=== PATIENT | female | born 1940 | race Caucasian/White ===

== ENCOUNTER 2017-06-25 13:15 | Emergency (ER) | payer OTHER ==
[~2017-06-25] VITALS: Ht 165.1 cm; Wt 84.1 kg
[2017-06-25] MEDS ORDERED: LATA5OPD (13:32)
[2017-06-25] MEDS ORDERED: POTA10TA17 PO (13:32)
[2017-06-25] MEDS ORDERED: LEVO50TA5 PO (13:32)
[2017-06-25] MEDS ORDERED: FAMO1TAB11 PO (13:32)
[2017-06-25] MEDS ORDERED: VITA1CAP40 PO (13:32)
[2017-06-25] MEDS ORDERED: TIMO0.5S29 (13:32)
[2017-06-25] MEDS ORDERED: DICL75TA PO (13:32)
[2017-06-25] MEDS ORDERED: HYDR25TAB PO (13:32)
--- NOTE | 2017-06-25 16:32 | REP ---
Clinical: Pain. Technique: AP view of the pelvis with neutral and frog lateral views of the bilateral hips. Comparison: 07/03/2013. Findings: No acute fracture dislocation. Age-related degenerative changes include increased sclerosis to the acetabular roof with my mild joint space narrowing. Surrounding soft tissues are unremarkable. Pessary noted. Impression: Mild symmetric bilateral age-related degenerative changes. Signed by Asa Hurley MD 06/25/2017 04:23 P
[2017-06-25 16:56] VITALS: BP 170/89
[2017-06-25] MEDS ORDERED: KEFL500C17 PO (17:11)
[2017-06-25] MEDS ORDERED: IBUPROFEN 400 MG TAB PO ONE (17:15)
== END 2017-06-25 17:20 | disposition home or self-care (01) ==
LOC: M ED 13:15
DX: M16.0 Bilateral primary osteoarthritis of hip (principal); N39.0 Urinary tract infection, site not specified; G51.0 Bell's palsy; H35.30 Unspecified macular degeneration; E03.9 Hypothyroidism, unspecified; Z79.899 Other long term (current) drug therapy

== ENCOUNTER 2017-06-28 04:37 | Inpatient (IN) | payer OTHER ==
[~2017-06-28] VITALS: Ht 165.1 cm; Wt 93.5 kg
[~2017-06-28 04:37] MED LIST: DICL75TA PO; FAMO1TAB11 PO; HYDR25TAB PO; KEFL500C17 PO; LATA5OPD; LEVO50TA5 PO; POTA10TA17 PO; TIMO0.5S29; VITA1CAP40 PO
[2017-06-28] MEDS ORDERED: IBUP200T45 PO (04:58)
[2017-06-28] MEDS ORDERED: ASPI1TAB PO (04:58)
[2017-06-28] MEDS ORDERED: TYLE500T78 PO (04:58)
[2017-06-28 06:12] LABS: BASO % 0.2 % (0.0-1.0); EOS # 0.1 10^3/uL (0.0-0.50); EOS % 0.5 % (0.0-3.0); IMMATURE GRANULOCYTE % 0.7 % (0-0); LYMPH # 1.5 10^3/uL (1.5-4.5); LYMPH % 11.6 % (24.0-44.0); MEAN CORPUSCULAR HEMOGLOBIN 32.1 pg (27.0-33.0); MONO # 1.3 10^3/uL (0.0-0.8); MONO % 10.2 % (0.0-5.0); NEUTROPHILS # 10.1 10^3/uL (1.8-7.7); NEUTROPHILS % 76.8 % (36.0-66.0); PLATELET COUNT, AUTOMATED 339 10^3/uL (150-450); RED CELL DISTRIBUTION WIDTH 11.9 % (11.5-14.5); WHITE BLOOD COUNT 13.1 10^3/uL (4.0-10.0)
[2017-06-28 06:14] LABS: INR 0.94
[2017-06-28] MEDS ORDERED: MORPHINE 4 MG/ML 1ML SYRINGE IV PRN (06:15)
[2017-06-28] MEDS ORDERED: ONDANSETRON 4MG/2ML VIAL (J2405) IV ONE (06:15)
[2017-06-28 06:22] LABS: ALBUMIN 3.2 GM/DL (3.2-5.2); ALBUMIN/GLOBULIN RATIO 0.82 (1.00-1.93); ALKALINE PHOSPHATASE 91 U/L (45-117); ALT/SGPT 19 U/L (12-78); ANION GAP 11 MEQ/L (8-16); AST/SGOT 18 U/L (7-37); BILIRUBIN,DIRECT 0.2 MG/DL (0.0-0.2); BILIRUBIN,TOTAL 0.4 MG/DL (0.2-1.0); BLOOD UREA NITROGEN 8 MG/DL (7-18); CARBON DIOXIDE LEVEL 24 MEQ/L (21-32); CHLORIDE LEVEL 88 MEQ/L (98-107); CREATININE FOR GFR 0.63 MG/DL (0.55-1.02); GLOMERULAR FILTRATION RATE > 60.0 (>39); GLUCOSE, FASTING 128 MG/DL (83-110); POTASSIUM SERUM 3.7 MEQ/L (3.5-5.1); SODIUM LEVEL 123 MEQ/L (136-145); TOTAL PROTEIN 7.1 GM/DL (6.4-8.2)
[2017-06-28] MEDS ORDERED: ISOVUE-370 76% 100ML VIAL (Q9967) As Ordered ONE (07:02)
[2017-06-28 07:50] LABS: FREE T4 2.16 NG/DL (0.76-1.46)
--- NOTE | 2017-06-28 08:10 | REPUSA ---
CLINICAL HISTORY: Abdominal pain. TECHNIQUE: Multiple axial, sagittal and coronal CT images were obtained through the abdomen and pelvi s after administration of oral and intravenous contrast material. COMMENTS: Acute/subacute compression fracture of L2 vertebral body. The maximum loss of height is estimated at 86%. Associated moderate retropulsion with impingement on the corresponding aspect of the thecal sac. Secondary moderate narrowing of the corresponding aspect of the spinal canal increased kyphosis at t he level of the thoracolumbar junction. Acute/subacute compression fracture of L1 vertebral body. The maximum loss of height is estimated at 15%. No associated retropulsion or secondary canal stenosis. Mild osteopenia of the visualized bones. Moderate diffuse spondylotic changes. Uncomplicated chronic diverticulosis. Thickening of the gastric body and antrum suggestive of gastritis. No associated perforation or fluid collection. The liver is of uniform attenuation without mass or defect. There is no intra or extrahepatic biliary ductal dilatation. The spleen is normal. The gallbladder is surgically absent. The pancreas is of no rmal contour and attenuation characteristics. There is no evidence of adrenal mass. Both kidneys demonstrate prompt and equal nephrograms. The kidneys are normal in size, shape and conf iguration. There is no evidence of renal or ureteral mass. No renal or ureteral calculi are identifie d. There is no hydroureter or hydronephrosis. No evidence for appendicitis. There is no bowel wall thickening. No evidence for small or large katherin l obstruction. There is no evidence of abdominal ascites or lymphadenopathy. There is no evidence of intrinsic or extrinsic bladder mass. There is no pelvic ascites or lymphadeno noe. Images of the lung bases show no evidence of pleural or parenchymal mass. There are no pleural effusi ons. The bony structures are free of lytic or blastic lesions. Multilevel degenerative changes are seen in volving the thoracolumbar spine. Scattered calcifications are seen involving the aorta and major bran ches compatible with atherosclerosis. Pessary is noted in place. IMPRESSION: Acute/subacute compression fractures of L1 and L2 vertebral bodies as detailed above. Gastritis. Prior cholecystectomy. Uncomplicated diverticulosis. Mild cystitis. Thank you for your kind referral of this patient.
--- NOTE | 2017-06-28 08:10 | REPUSA ---
CLINICAL HISTORY: Back pain. TECHNIQUE: Multiple axial images were obtained through the L1-L2, L2-L3, L3-L4, L4-L5 and L5-S1 inter spaces. Images were also reconstructed in coronal and sagittal planes. COMMENTS: Acute/subacute compression fracture of L2 vertebral body. The maximum loss of height is estimated at 86%. Associated moderate retropulsion with impingement on the corresponding aspect of the thecal sac. Secondary moderate narrowing of the corresponding aspect of the spinal canal increased kyphosis at t he level of the thoracolumbar junction. Acute/subacute compression fracture of L1 vertebral body. The maximum loss of height is estimated at 15%. No associated retropulsion or secondary canal stenosis. Mild osteopenia of the visualized bones. Moderate diffuse spondylotic changes. There are diffuse spondylotic changes. Findings are demonstrated by disc space narrowing, osteophyte formation and degenerative endplate changes. Facet joint arthropathy and degenerative uncovertebral j oint disease. No dislocation is seen. No aggressive bone lesion is noted. IMPRESSION: Acute/subacute compression fracture of L2 vertebral body. The maximum loss of height is estimated at 86%. Associated moderate retropulsion with impingement on the corresponding aspect of the thecal sac. Secondary moderate narrowing of the corresponding aspect of the spinal canal increased kyphosis at t he level of the thoracolumbar junction. Acute/subacute compression fracture of L1 vertebral body. The maximum loss of height is estimated at 15%. No associated retropulsion or secondary canal stenosis. Thank you for your kind referral of this patient.
--- NOTE | 2017-06-28 08:59 | REP ---
Clinical: Shortness of breath . Comparison: None . Findings: The mediastinum and cardiac silhouette are stable and within normal limits for portable technique. The lung bonds are clear without acute consolidation, effusion, or pneumothorax. Skeletal structures are intact. Impression: No acute cardiopulmonary process appreciated. Signed by Asa Hurley MD 06/28/2017 08:50 A
[2017-06-28] MEDS ORDERED: hydroCHLOROthiazide 25 MG TAB PO SCH (09:00)
--- NOTE | 2017-06-28 09:27 | ECGEPIP ---
Stationary ECG Study [facility] - ED Test Date: 2017-06-28 Pat Name: ANABELLE SWAIN Department: Room: - Gender: F Associate Spa Director: MARY : 1940 Requested By: Kayley Hdz Order Number: [id number] Reading MD: Paul Willis Measurements Intervals [place] Rate: 65 P: 23 OK: 149 QRS: -15 QRSD: 90 T: 30 QT: 413 QTc: 430 Interpretive Statements SINUS RHYTHM NO PRIORS FOR COMPARISON Electronically Signed On 06-28-2017 9:26:44 EST by Paul Willis
[2017-06-28] MEDS ORDERED: MAGN64TASA PO (09:30)
[2017-06-28] MEDS ORDERED: PRESCAP6 PO (09:30)
[2017-06-28] MEDS ORDERED: DICL75TA PO (09:30)
[2017-06-28] MEDS ORDERED: MIRA33504 PO (09:30)
[2017-06-28] MEDS ORDERED: HYDR25TAB PO (09:30)
[2017-06-28] MEDS ORDERED: FLUTISP (09:31)
[2017-06-28] MEDS ORDERED: DRIS50002 PO (09:32)
[2017-06-28] MEDS ORDERED: LATA5OPD OU (09:34)
[2017-06-28] MEDS ORDERED: TIMO0.5S29 OU (09:34)
[2017-06-28] MEDS ORDERED: ESTR62CR PV (09:36)
--- NOTE | 2017-06-28 11:24 | REP ---
MR LUMBAR SPINE WITHOUT CONTRAST: HISTORY: Back pain. COMPARISON: CT 06/28/2017. Decreased signal intensity on T2-weighted images is present in the lumbar intervertebral discs. The L1-2 through L3-4 and L5-S1 intervertebral discs are decreased in height. These findings are consistent with disc degeneration. A diffuse disc bulge is present at the L1-2 level. There is minimal compression of the thecal sac. There is hypertrophy of the ligamenta flava and posterior articulating facets. The L1 nerves exit the neural foramina without compression. A diffuse disc bulge is present at the L2-3 level. There is hypertrophy of the ligamenta flava and posterior articulating facets. These findings produce mild central canal stenosis. The L2 nerves exit the neural foramina without compression. A diffuse disc bulge is present at the L3-4 level. There is hypertrophy of the ligamenta flava and posterior articulating facets. These findings produce minimal central canal stenosis. The L3 nerves exit the neural foramina without compression. A diffuse disc bulge is present at the L4-5 level. There is minimal compression of the thecal sac. There is hypertrophy of the ligamenta flava and posterior articulating facets. The L4 nerves exit the neural foramina without compression. A diffuse disc bulge with associated osteophyte formation is present at the L5-S1 level. There is hypertrophy of ligamenta flava and posterior articulating facets. These findings produce minimal central canal stenosis. There is compression of the right L5 nerve in the neural foramen. The L5 nerve exits the neural foramen without compression. The conus medullaris is normal in appearance terminating at the level of the T12-L1 intervertebral disc. Slight increased signal intensity on T2-weighted images is present in the superior endplate region of the L2 vertebral body. There is moderate loss of vertebral body height. This is consistent with a late subacute chronic fracture. There is minimal retropulsion with minimal spinal canal compromise. Mild heterogeneous increased signal intensity on T2-weighted images is present in the L1 vertebral body. There is minimal height loss. This is consistent with a subacute acute fracture. Normal signal intensity is present in the remaining lumbar vertebral bodies. IMPRESSION: 1. Diffuse disc bulges at the L1-2 and L4-5 levels with minimal thecal sac compression. 2. Mild central canal stenosis at the L2-3 level secondary to disc bulge, ligamentous, and facet hypertrophy. 3. Minimal central canal stenosis at the L3-4 level secondary to disc bulge, ligamentous and facet hypertrophy. 4. Minimal central canal stenosis at the L5-S1 level secondary to disc bulge, ligamentous, and facet hypertrophy and osteophyte formation. There is compression of the right L5 nerve in the neural foramen. 5. Subacute chronic L2 vertebral body fracture with moderate height loss. 6. Subacute L1 vertebral body fracture with minimal height loss. Signed by Willian Ruiz MD 06/28/2017 12:01 P
[2017-06-28] MEDS: NS 1,000 ML IV SCH (11:30)
[2017-06-28] MEDS ORDERED: ACETAMINOPHEN 500 MG TAB PO SCH (12:00)
[2017-06-28 12:12] LABS: THYROXINE (T4) 13.5 UG/DL (4.5-12.0)
[2017-06-28 12:59] VITALS: BP 120/63
[2017-06-28] MEDS: TIMOLOL MALEATE 0.5% OPHTH SOLN 5 ML OU SCH ×2 (13:04→21:08)
[2017-06-28] MEDS: MAGNESIUM CHLORIDE 64 MG TABCR (SLO MAG) PO SCH ×2 (13:04→21:07)
[2017-06-28] MEDS: MORPHINE 2 MG/ML 1ML SYRINGE IV PRN ×2 (13:05→22:08)
[2017-06-28] MEDS: HEPARIN SOD (PORCINE) 5000 UNITS/ML VIAL SC SCH ×2 (13:05→22:13)
[2017-06-28] MEDS: CEFTRIAXONE SOD 1 GM in APPROPRIATE DILUENT 1 EA IV SCH (14:09)
[2017-06-28] MEDS: ACETAMINOPHEN 500 MG TAB PO SCH ×2 (15:35→21:08)
[2017-06-28 16:00] VITALS: BP 149/75
--- NOTE | 2017-06-28 16:19 | HPEPDOC ---
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 Yan Chiropractor: Dr. Russell Attending Physician: GINA GALLARDO MD Chief Complaint 76-year-old female presents to ED for chronic low back pain that has worsened in the past few days. Described as sharp, located in low back, intermittent, radiating to bilateral hips. 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 Back pain is worse with movement and at night, and alleviated by heat. Associated with nausea, left lower belly pain, and decreased appetite. Patient denies recent falls or injuries. Per patient, most recent bone density scan done in was normal. Patient was recently seen in ED on Wednesday and sent home with diagnoses of UTI on cephalexin and arthritis of bilateral hips. Patient still complains of incontinence and urgency and frequency. Denies other ROS, including loss of bowel bladder function, saddle anesthesia, motor or sensory weakness, chest pain, shortness of breath. In the ED, WBC was elevated at 13.1, patient hyponatremic at 123, in BP elevated at 209/96 that improved with Iopamidol and Morphine. Other vitals WNL. Imaging revealed compression fractures of L1 and L2, gastritis, cystitis. Home Medications Scheduled (Preservision Areds 2) 1 Cap Cap, 1 CAP PO BID, (Reported) Acetaminophen (Tylenol Extra Strength) 500 Mg Tab, 500 MG PO Q4H, (Reported) Aspirin (Aspirin 81) 81 Mg Tab, 81 MG PO QPM, (Reported) Cephalexin Monohydrate (Keflex) 500 Mg Cap, 500 MG PO Q12H Conjugated Estrogens (Premarin) 1 Dose/30 Gm Cr, 1 DOSE PV QWEEK, (Reported) TUESDAYS Diclofenac Sodium (Diclofenac Sodium Dr) 75 Mg Tab, 75 MG PO DAILY, (Reported) PT STATES SHE IS NOT TAKING WHILE TAKING HER ANTIBIOTIC Famotidine (Famotidine) 20 Mg Tab, 20 MG PO QPM, (Reported) Hydrochlorothiazide (Hydrochlorothiazide) 25 Mg Tab, 25 MG PO DAILY, (Reported) Ibuprofen (Ibu-200) 200 Mg Tab, 200 MG PO Q4H, (Reported) Latanoprost (Latanoprost) 50 Drop/2.5 Ml Soln, 1 DROP OU QHS, (Reported) Levothyroxine Sodium (Synthroid) 50 Mcg Tab, 50 MCG PO DAILY, (Reported) Magnesium Chloride (Mag64) 64 Mg Tabcr, 64 MG PO BID, (Reported) PT STATES SHE IS NOT TAKING WHILE TAKING HER ANTIBIOTIC Polyethylene Glycol (Miralax) 1 Pow Pow, 17 GM PO DAILY, (Reported) Potassium Chloride (Potassium Chloride Sr) 10 Meq Tab, 10 MEQ PO QPM, (Reported) Timolol Maleate (Timolol Maleate) 0.5 % Nora, 1 DROP OU BID, (Reported) AM AND NOON Vitamin D (Drisdol) 50,000 Unit Cap, 50,000 UNIT PO QMONTH, (Reported) Scheduled PRN Fluticasone Propionate (Fluticasone Propionate) 50 Mcg/Act Spr, 1 SPRAY NA BID PRN for CONGESTION, (Reported) Allergies Coded Allergies: No Known Allergies (Unverified , 06/25/17) Past Medical History Medical History Hypothyroidism Hypertension Macular degeneration-wet GERD Glaucoma Squamous Cell Carcinoma on right hand, dorsal Surgical History Tonsillectomy Cholecystectomy Tubal ligation Hysterectomy Bilateral cataract surgery Family History Father: Passed of stroke Mother: Passed of colon cancer Sister: Breast cancer Social History Denies smoking, alcohol, illicit substances. Lives at home with . Ambulates by self. Review of Symptoms Constitutional: Denies: Chills, Fever, Night Sweats, Weight Loss Eyes: Denies: Pain, Vision change ENT: Denies: Head Aches, Ear Pain, Dysphagia Pulmonary: Denies: Dyspnea, Cough Cardiovascular: Denies: Chest Pain, Palpitations, Edema, Lt Headedness Gastrointestinal: Reports: Abdominal Pain (intermittent, LLQ), Constipation ( chronic), Denies: Nausea, Vomiting, Melena Endocrine: Denies: Heat Intolerance, Cold Intolerance Musculoskeletal: Reports: Back Pain (low back, radiating to bilater hips), Denies: Muscle Pain, Spasms Neurological: Denies: Weakness, Numbness Physical Examination General Exam: Positive: Alert, Cooperative, Mild Distress (due to back pain) Eye Exam: Positive: Conjunctiva & lids normal, EOMI, Negative: Sclera icteric, Ptosis ENT Exam: Positive: Atraumatic, Mucous membr. moist/pink, Nares Patent, Pinna Normal, Other ENT (poor dentition) Neck Exam: Positive: Supple, +2 carotid pulse wo bruit, Negative: JVD, Lymphadenopathy Chest Exam: Positive: Clear to auscultation, Normal air movement, Negative: Wheezing Heart Exam: Positive: Rate Normal, Regular Rhythm, Normal S1, Normal S2 Abdomen Exam: Positive: Normal bowel sounds, Soft, Negative: Tenderness Extremity Exam: Positive: Normal pulses, Negative: Clubbing, Cyanosis, Edema, Tenderness Skin Exam: Positive: Nl turgor and temperature, Negative: Rash Neuro Exam: Positive: Normal Speech, Strength at 5/5 X4 ext, Normal Tone, Sensation Intact Psych Exam: Positive: Mental status NL, Mood NL Vital Signs Vital Signs Date Time Temp Pulse Resp B/P (MAP) Pulse Ox O2 Delivery O2 Flow Rate FiO2 06/28/17 09:37 80 06/28/17 09:26 172/87 (115) 06/28/17 09:22 97 06/28/17 09:00 20 06/28/17 04:38 97.8 Room Air Laboratory Data Labs 24H Laboratory Tests 2 06/28/17 05:26: Immature Granulocyte % (Auto) 0.7H, White Blood Count 13.1H, Red Blood Count 3.74L, Hemoglobin 12.0, Hematocrit 33.3L, Mean Corpuscular Volume 89.0, Mean Corpuscular Hemoglobin 32.1, Mean Corpuscular Hemoglobin Concent 36.0, Red Cell Distribution Width 11.9, Platelet Count 339, Neutrophils (%) (Auto) 76.8H, Lymphocytes (%) (Auto) 11.6L, Monocytes (%) (Auto) 10.2H, Eosinophils (%) (Auto ) 0.5, Basophils (%) (Auto) 0.2, Neutrophils # (Auto) 10.1H, Lymphocytes # (Auto ) 1.5, Monocytes # (Auto) 1.3H, Eosinophils # (Auto) 0.1, Basophils # (Auto) 0.0 , Immature Granulocyte # (Auto) 0.1H, Nucleated Red Blood Cells % (auto) 0.0, Prothrombin Time 12.7, Prothromb Time International Ratio 0.94, Activated Partial Thromboplast Time 35.2, Anion Gap 11, Glomerular Filtration Rate > 60.0 , Osmolality 288, Calcium Level 9.0, Aspartate Amino Transf (AST/SGOT) 18, Alanine Aminotransferase (ALT/SGPT) 19, Alkaline Phosphatase 91, Total Bilirubin 0.4, Direct Bilirubin 0.2, Total Creatine Kinase 59, Creatine Kinase MB 2.4, Creatine Kinase MB Relative Index 4.06H, Troponin I < 0.02, Total Protein 7.1, Albumin 3.2, Albumin/Globulin Ratio 0.82L, Lipase 321, Thyroid Stimulating Hormone (TSH) 2.730, Free Thyroxine 2.16H 06/28/17 07:33: Urine Random Osmolality 252L, Urine Random Creatinine 40.4, Urine Random Sodium 50 CBC/BMP Laboratory Tests 06/28/17 05:26 Red Blood Count 3.74 L, Mean Corpuscular Volume 89.0, Mean Corpuscular Hemoglobin 32.1, Mean Corpuscular Hemoglobin Concent 36.0, Red Cell Distribution Width 11.9, Neutrophils (%) (Auto) 76.8 H, Lymphocytes (%) (Auto) 11.6 L, Monocytes (%) (Auto) 10.2 H, Eosinophils (%) (Auto) 0.5, Basophils (%) ( Auto) 0.2, Neutrophils # (Auto) 10.1 H, Lymphocytes # (Auto) 1.5, Monocytes # ( Auto) 1.3 H, Eosinophils # (Auto) 0.1, Basophils # (Auto) 0.0 Microbiology Microbiology 06/28/17 Blood Culture, Received Pending 06/28/17 Blood Culture, Received Pending Assessment/Plan Compression fracture L1/L2 & L5 Chronic low back pain that recently worsened the past few days. Sharp, intermittent, radiating to bilateral hips, worse with mvmt. Denies paresthesia/ weakness. Compression fractures and spinal stenosis noted on imaging. Neurosurgery consulted. Appreciate Dr. Moeller's input Pain control with Tylenol & Morphine PT eval pending, on bedrest Hypertensive urgency SBP > 200 on admission, improved with Iopamidol partially due to back pain. Morphine for back pain will improve bp low sodium diet hold home HCTZ 2/2 hyponatremia Leukocytosis, 2/2 UTI WBC 13. Recently seen in ED on Wednesday and sent home on Cephalexin Hold cephalexin, start Ceftriaxone inpatient previous urine cultures were negative. Redo urine culture, with straight cath now Hyponatremia Na 123 on admission. Will check urine & serum osmolality, SIADH vs volume depletion possibly 2/2 dehydration. On NS IV hydration Hold home HCTZ Squamous cell cancer on right hand Cancer was excised by [facility] Nurse Practitioners. Stitches still in place on dorsal surface of right hand, was scheduled to be taken out early this week. Will assess and possibly remove tomorrow. GERD continue home Famotidine Glaucoma continue home Timolol may use own home Areds drops Hypothyroidism continue home Synthroid DVT prophylaxis TEDS/SCDs, Heparin sc DISPOSITION: We'll admit to hospital under Dr. Gallardo's service. Plan / VTE VTE Prophylaxis Ordered?: Yes (KAYDEN/SCD) GME ATTESTATION GME ATTESTATION My faculty preceptor for this patient encounter was physically present during the encounter and was fully available. All aspects of the patient interview, examination, medical decision making process, and medical care plan development were reviewed and approved by the faculty preceptor. The faculty preceptor is aware and concurs with the plan as stated in the body of this note and will attest to such by his/her cosignature. OWEN OSMAN DO Jun 28, 2017 10:05
[2017-06-28 20:00] VITALS: BP 159/70
[2017-06-28] MEDS: ASPIRIN 81 MG ENTERIC TAB PO SCH (21:08)
[2017-06-28] MEDS: FAMOTIDINE 20 MG TAB PO SCH (21:08)
[2017-06-28] MEDS: POTASSIUM CHLORIDE 10 MEQ SR TABLET PO SCH (21:09)
[2017-06-28] MEDS: LATANOPROST 0.005% OPHTH SOLN 2.5 ML OU SCH (21:38)
[2017-06-28 23:59] VITALS: BP 112/57
[2017-06-29] MEDS: ACETAMINOPHEN 500 MG TAB PO SCH ×6 (00:16→20:57)
[2017-06-29] MEDS: NS 1,000 ML IV SCH ×2 (02:21→15:32)
[2017-06-29 04:00] VITALS: BP 162/83
[2017-06-29] MEDS: HEPARIN SOD (PORCINE) 5000 UNITS/ML VIAL SC SCH ×3 (05:56→21:41)
[2017-06-29 06:10] LABS: MEAN CORPUSCULAR HEMOGLOBIN 31.1 pg (27.0-33.0); MEAN CORPUSCULAR HGB CONC 35.3 g/dl (32.0-36.5); MEAN CORPUSCULAR VOLUME 88.2 fl (80.0-96.0); PLATELET COUNT, AUTOMATED 327 10^3/uL (150-450); RED CELL DISTRIBUTION WIDTH 11.9 % (11.5-14.5); WHITE BLOOD COUNT 7.6 10^3/uL (4.0-10.0)
[2017-06-29 06:26] LABS: ANION GAP 8 MEQ/L (8-16); BLOOD UREA NITROGEN 6 MG/DL (7-18); CALCIUM LEVEL 8.7 MG/DL (8.8-10.2); CARBON DIOXIDE LEVEL 26 MEQ/L (21-32); CHLORIDE LEVEL 92 MEQ/L (98-107); CREATININE FOR GFR 0.58 MG/DL (0.55-1.02); GLOMERULAR FILTRATION RATE > 60.0 (>39); GLUCOSE, FASTING 100 MG/DL (83-110); POTASSIUM SERUM 3.4 MEQ/L (3.5-5.1); SODIUM LEVEL 126 MEQ/L (136-145)
[2017-06-29 07:44] VITALS: BP 137/63
[2017-06-29] MEDS ORDERED: POTASSIUM CHLORIDE 10 MEQ SR TABLET PO ONE (08:15)
[2017-06-29] MEDS: TIMOLOL MALEATE 0.5% OPHTH SOLN 5 ML OU SCH ×2 (08:26→20:57)
[2017-06-29] MEDS: MAGNESIUM CHLORIDE 64 MG TABCR (SLO MAG) PO SCH ×2 (08:26→20:57)
[2017-06-29] MEDS: FLUTICASONE PROP 0.05% NASAL SPRAY 16 GM (FLONASE) PRN (08:27)
[2017-06-29] MEDS ORDERED: LEVOTHYROXINE 50MCG TABLET (0.05MG) PO SCH (09:00)
[2017-06-29] MEDS: MORPHINE 2 MG/ML 1ML SYRINGE IV PRN (10:29)
[2017-06-29] MEDS: MIRALAX *UNIT DOSE* 17GM PACKET PO SCH (11:01)
[2017-06-29] MEDS: LEVOTHYROXINE 50MCG TABLET (0.05MG) PO SCH (11:01)
--- NOTE | 2017-06-29 11:13 | IPNPDOC ---
Subjective Date Seen The patient was seen on 06/29/17. Subjective Chief Complaint/HPI The patient is a 76-year-old female admitted with a reason for visit of Back Pain. States back pain is better controlled, and she feels slightly improved. No saddle anesthesia, loss of motor or sensory function. Less urgency today compared to past few days. Stitches on right dorsal hand to be removed this week. Constitutional: Denies: Chills, Fever Eyes: Denies: Pain, Vision change ENT: Denies: Head Aches, Dysphagia Pulmonary: Denies: Dyspnea, Cough Cardiovascular: Denies: Chest Pain, Palpitations, Edema, Lt Headedness Gastrointestinal: Denies: Nausea, Vomiting, Abdominal Pain Genitourinary: Reports: Other Symptoms (urgency has improved slightly), Denies: Dysuria, Frequency Neurological: Denies: Weakness, Numbness Psych: Reports: Mood Normal Objective Physical Examination General Exam: Positive: Alert, Cooperative, No Acute Distress Eye Exam: Positive: Conjunctiva & lids normal, Negative: Ptosis ENT Exam: Positive: Atraumatic, Mucous membr. moist/pink Neck Exam: Positive: Supple, Negative: JVD, Lymphadenopathy Chest Exam: Positive: Clear to auscultation, Normal air movement, Negative: Wheezing Heart Exam: Positive: Rate Normal, Regular Rhythm, Normal S1, Normal S2 Abdomen Exam: Positive: Normal bowel sounds, Soft, Negative: Tenderness Extremity Exam: Positive: Normal pulses, Negative: Clubbing, Cyanosis, Edema, Tenderness Skin Exam: Positive: Nl turgor and temperature, Negative: Rash Neuro Exam: Positive: Normal Speech, Strength at 5/5 X4 ext, Normal Tone, Sensation Intact Psych Exam: Positive: Mental status NL, Mood NL, Oriented x 3 Assessment /Plan Assessment Compression fracture L1/L2 & L5 Chronic low back pain that recently worsened the past few days. Sharp, intermittent, radiating to bilateral hips, worse with mvmt. Denies paresthesia/ weakness. Compression fractures and spinal stenosis noted on imaging. pt feels slightly better today, pain better controlled Neurosurgery consulted. Appreciate Dr. Moeller's input Pain control with Tylenol & Morphine PT eval pending, on bedrest HTN better controlled with pain control, morphine low sodium diet hold home HCTZ 2/2 hyponatremia Leukocytosis, 2/2 UTI normalized continue Ceftriaxone urine culture pending blood cultures negative 24 hours Hyponatremia improving, 126 today. Will check urine & serum osmolality, SIADH vs volume depletion possibly 2/2 dehydration. On NS IV hydration Hold home HCTZ Squamous cell cancer on right hand Cancer was excised by [facility] Nurse Practitioners. Stitches still in place on dorsal surface of right hand, was scheduled to be taken out early this week. Will assess and possibly remove this week. GERD continue home Famotidine Glaucoma continue home Timolol may use own home Areds drops Hypothyroidism continue home Synthroid DVT prophylaxis TEDS/SCDs, Heparin sc Plan/VTE VTE Prophylaxis Ordered?: Yes (KAYDEN/SCD) VS, I&O, 24H, Fishbone Vital Signs/I&O Vital Signs Date Time Temp Pulse Resp B/P (MAP) Pulse Ox O2 Delivery O2 Flow Rate FiO2 06/29/17 10:29 18 06/29/17 07:44 97.6 63 137/63 (87) 95 Room Air 06/28/17 13:20 2.0 I&O- Last 24 Hours up to 6 AM 06/30/17 06:00 Output Total 0 ml Balance 0 ml Laboratory Data 24H LABS Laboratory Tests 2 06/28/17 11:12: Osmolality 257L, Thyroid Stimulating Hormone (TSH) 2.200, Free Thyroxine Index 5.7H, Thyroxine (T4) 13.5H, Triiodothyronine (T3) Uptake 42H 06/28/17 14:11: Urine Random Osmolality 480L 06/29/17 05:54: Nucleated Red Blood Cells % (auto) 0.0 06/29/17 05:55: Anion Gap 8, Glomerular Filtration Rate > 60.0, Blood Urea Nitrogen 6L, Creatinine 0.58, Sodium Level 126L, Potassium Level 3.4L, Chloride Level 92L, Carbon Dioxide Level 26, Calcium Level 8.7L CBC/BMP Laboratory Tests 06/29/17 05:54 Red Blood Count 3.73 L, Mean Corpuscular Volume 88.2, Mean Corpuscular Hemoglobin 31.1, Mean Corpuscular Hemoglobin Concent 35.3, Red Cell Distribution Width 11.9 06/29/17 05:55 Calcium Level 8.7 L Microbiology Microbiology 06/28/17 Blood Culture - Preliminary, Resulted No growth after 24 hours . All specim... 06/28/17 Blood Culture - Preliminary, Resulted No growth after 24 hours . All specim... 06/28/17 Urine Culture, Received Pending GME ATTESTATION GME ATTESTATION My faculty preceptor for this patient encounter was physically present during the encounter and was fully available. All aspects of the patient interview, examination, medical decision making process, and medical care plan development were reviewed and approved by the faculty preceptor. The faculty preceptor is aware and concurs with the plan as stated in the body of this note and will attest to such by his/her cosignature. OWEN OSMAN DO Jun 29, 2017 11:13
[2017-06-29] MEDS: CEFTRIAXONE SOD 1 GM in APPROPRIATE DILUENT 1 EA IV SCH (13:46)
[2017-06-29] MEDS: POTASSIUM CHLORIDE 10 MEQ SR TABLET PO SCH (20:56)
[2017-06-29] MEDS: FAMOTIDINE 20 MG TAB PO SCH (20:57)
[2017-06-29] MEDS: LATANOPROST 0.005% OPHTH SOLN 2.5 ML OU SCH (20:57)
[2017-06-29] MEDS: ASPIRIN 81 MG ENTERIC TAB PO SCH (20:57)
[2017-06-29] MEDS: ANALGESIC BALM CRM 120 GM TOP PRN (20:58)
[2017-06-29] MEDS: [UNRECOGNIZED DRUG - OTHER] PO SCH (21:42)
[2017-06-29 22:00] VITALS: BP 147/70
[2017-06-30] MEDS: ACETAMINOPHEN 500 MG TAB PO SCH ×7 (00:26→23:19)
[2017-06-30] MEDS: FLUTICASONE PROP 0.05% NASAL SPRAY 16 GM (FLONASE) PRN ×2 (00:36→21:44)
[2017-06-30] MEDS: NS 1,000 ML IV SCH ×2 (03:45→18:51)
[2017-06-30] MEDS: HEPARIN SOD (PORCINE) 5000 UNITS/ML VIAL SC SCH ×3 (05:54→21:44)
[2017-06-30] MEDS: LEVOTHYROXINE 50MCG TABLET (0.05MG) PO SCH (05:54)
[2017-06-30 06:00] VITALS: BP 163/87
[2017-06-30 06:08] LABS: MEAN CORPUSCULAR HEMOGLOBIN 31.6 pg (27.0-33.0); MEAN CORPUSCULAR HGB CONC 34.2 g/dl (32.0-36.5); MEAN CORPUSCULAR VOLUME 92.3 fl (80.0-96.0); PLATELET COUNT, AUTOMATED 336 10^3/uL (150-450); RED CELL DISTRIBUTION WIDTH 12.4 % (11.5-14.5); WHITE BLOOD COUNT 6.9 10^3/uL (4.0-10.0)
[2017-06-30 06:24] LABS: ANION GAP 5 MEQ/L (8-16); BLOOD UREA NITROGEN 10 MG/DL (7-18); CALCIUM LEVEL 8.4 MG/DL (8.8-10.2); CARBON DIOXIDE LEVEL 28 MEQ/L (21-32); CHLORIDE LEVEL 103 MEQ/L (98-107); CREATININE FOR GFR 0.69 MG/DL (0.55-1.02); GLOMERULAR FILTRATION RATE > 60.0 (>39); GLUCOSE, FASTING 92 MG/DL (83-110); SODIUM LEVEL 136 MEQ/L (136-145)
[2017-06-30 09:53] VITALS: BP 137/64
[2017-06-30] MEDS: MIRALAX *UNIT DOSE* 17GM PACKET PO SCH (11:12)
[2017-06-30] MEDS: [UNRECOGNIZED DRUG - OTHER] PO SCH ×2 (11:12→20:08)
[2017-06-30] MEDS: TIMOLOL MALEATE 0.5% OPHTH SOLN 5 ML OU SCH ×2 (11:12→20:08)
[2017-06-30] MEDS ORDERED: BISACODYL 5 MG TAB PO PRN (11:45)
[2017-06-30] MEDS: MAGNESIUM CHLORIDE 64 MG TABCR (SLO MAG) PO SCH ×2 (12:14→20:07)
[2017-06-30] MEDS: CEFTRIAXONE SOD 1 GM in APPROPRIATE DILUENT 1 EA IV SCH (13:38)
[2017-06-30 14:29] VITALS: BP 134/62
--- NOTE | 2017-06-30 17:34 | IPNPDOC ---
Subjective Date Seen The patient was seen on 06/30/17. Subjective Chief Complaint/HPI The patient is a 76-year-old female admitted with a reason for visit of Back Pain. No acute complaints. Present for family's discussion with Neurosurgery: family declined surgical intervention, and will seek back brace and physical therapy. On bedrest till brace is customized and PT eval. Constitutional: Denies: Chills, Fever Eyes: Denies: Pain, Vision change ENT: Reports: Head Aches, Denies: Dysphagia Pulmonary: Denies: Dyspnea, Cough Cardiovascular: Denies: Chest Pain, Palpitations, Edema, Lt Headedness Gastrointestinal: Reports: Constipation, Denies: Nausea, Vomiting, Abdominal Pain Genitourinary: Denies: Dysuria, Hematuria Musculoskeletal: Reports: Back Pain Neurological: Denies: Weakness, Numbness Psych: Reports: Anxiety (about fractures) Objective Physical Examination General Exam: Positive: Alert, Cooperative, No Acute Distress Eye Exam: Positive: Conjunctiva & lids normal, Negative: Ptosis ENT Exam: Positive: Atraumatic, Mucous membr. moist/pink Neck Exam: Positive: Supple, Negative: JVD, Lymphadenopathy Chest Exam: Positive: Clear to auscultation, Normal air movement, Negative: Wheezing Heart Exam: Positive: Rate Normal, Regular Rhythm, Normal S1, Normal S2 Abdomen Exam: Positive: Normal bowel sounds, Soft, Negative: Tenderness Extremity Exam: Positive: Normal pulses, Negative: Clubbing, Cyanosis, Edema, Tenderness Skin Exam: Positive: Nl turgor and temperature, Negative: Rash Neuro Exam: Positive: Normal Speech, Strength at 5/5 X4 ext, Normal Tone, Sensation Intact Psych Exam: Positive: Mental status NL, Mood NL, Oriented x 3 Assessment /Plan Assessment Compression fracture L1/L2 & L5 Chronic low back pain that recently worsened the past few days. Sharp, intermittent, radiating to bilateral hips, worse with mvmt. Denies paresthesia/ weakness. Compression fractures and spinal stenosis on imaging. Neurosurgery consulted. Appreciate Dr. Moeller's input. Family wants to avoid surgical intervention, and will seek customized brace and PT instead Pain control with Tylenol & Morphine PT eval pending, on bedrest until brace is fitted, per NeuroSx HTN better controlled with pain control, morphine low sodium diet hold home HCTZ 2/2 hyponatremia UTI continue Ceftriaxone urine culture pending blood cultures negative 24 hours Hyponatremia normalized to 136 today low serum osmoles continue NS IV hydration Hold home HCTZ Hypokalemia supplemented yesterday. Normalized today Hypothyroidism TSH normal, but elevated T4 & T3. 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 Staff to remove stitches GERD continue home Famotidine Glaucoma continue home Timolol may use own home Areds drops DVT prophylaxis TEDS/SCDs, Heparin sc Plan/VTE VTE Prophylaxis Ordered?: Yes (KAYDEN/SCD) VS, I&O, 24H, Fishbone Vital Signs/I&O Vital Signs Date Time Temp Pulse Resp B/P (MAP) Pulse Ox O2 Delivery O2 Flow Rate FiO2 06/30/17 09:53 98.0 80 20 137/64 (88) 96 Room Air 06/28/17 13:20 2.0 Laboratory Data 24H LABS Laboratory Tests 2 06/30/17 05:41: Nucleated Red Blood Cells % (auto) 0.0, Anion Gap 5L, Glomerular Filtration Rate > 60.0, Blood Urea Nitrogen 10#, Creatinine 0.69, Sodium Level 136#, Potassium Level 4.0, Chloride Level 103, Carbon Dioxide Level 28, Calcium Level 8.4L CBC/BMP Laboratory Tests 06/30/17 05:41 Red Blood Count 3.64 L, Mean Corpuscular Volume 92.3, Mean Corpuscular Hemoglobin 31.6, Mean Corpuscular Hemoglobin Concent 34.2, Red Cell Distribution Width 12.4, Calcium Level 8.4 L Microbiology Microbiology 06/28/17 Blood Culture - Preliminary, Resulted No Growth after 48 hours. All Specime... 06/28/17 Blood Culture - Preliminary, Resulted No Growth after 48 hours. All Specime... 06/28/17 Urine Culture - Final, Complete GME ATTESTATION GME ATTESTATION My faculty preceptor for this patient encounter was physically present during the encounter and was fully available. All aspects of the patient interview, examination, medical decision making process, and medical care plan development were reviewed and approved by the faculty preceptor. The faculty preceptor is aware and concurs with the plan as stated in the body of this note and will attest to such by his/her cosignature. OWEN OSMAN DO Jun 30, 2017 11:38
--- NOTE | 2017-06-30 18:47 | CR.PDOC ---
General Date of Consultation: Jun 28, 2017 Reason for Consultation/CC The patient is a 76-year-old female admitted with a reason for visit of Back Pain. History of Present Illness HISTORY OF PRESENT ILLNESS: 76 yo white female developed severe low back pain over course of several days which prevents her ambulation at home. Changing position from bed to upright is causing a lot pain. PHYSICAL EXAMINATION: VITAL SIGNS: Please see below. NEUROLOGICAL: Patient A+Ox3, P1H2K2=17, Normal speech, KENNY, Normal ROM of EOM, face symmetrical. Motor: UE=LE=R=L=5/5 in all myotoms, Reflexes present through out R=L in UE and LE; no abnormal reflexes, no clonus. Sensation grossly intact. Gait and balance not tested due pain, patient comfortable in bed. SLR tests negative bilaterally. Neurologically: JOEL grade E, no radiculopathy or paralysis. Imaging: CT and MRI L-spine 06/28/2017 revealed subacute L1 and L2 osteoporotic fractures with minimal central canal stenosis and multilevel degenerative age- related changes. IMPRESSION: 1. L1 and L2 severe compression osteoporotic fractures 2. Multilevel degenerative L-spine changes PLAN/RECOMMENDATIONS: 1. No neurosurgical operative treatment at the moment 2. TLSO clam-shell brace 3. X-ray L-spine with brace Lateral view in bed and standing 4. Medication pain control 5 DVT prophylaxis. 6. Osteoporosis treatment. Thank you for the consultation. Laboratory Data Vital Signs Date Time Temp Pulse Resp B/P (MAP) Pulse Ox O2 Delivery O2 Flow Rate FiO2 06/30/17 14:29 98.2 78 18 134/62 (86) 97 Room Air 06/28/17 13:20 2.0 I&O- Last 24 Hours up to 6 AM 07/01/17 06:00 Intake Total 820 ml Output Total 680 ml Balance 140 ml Laboratory Tests 06/30/17 05:41 Red Blood Count 3.64 L, Mean Corpuscular Volume 92.3, Mean Corpuscular Hemoglobin 31.6, Mean Corpuscular Hemoglobin Concent 34.2, Red Cell Distribution Width 12.4, Calcium Level 8.4 L Laboratory Tests 2 06/30/17 05:41: Nucleated Red Blood Cells % (auto) 0.0, Anion Gap 5L, Glomerular Filtration Rate > 60.0, Blood Urea Nitrogen 10#, Creatinine 0.69, Sodium Level 136#, Potassium Level 4.0, Chloride Level 103, Carbon Dioxide Level 28, Calcium Level 8.4L Microbiology 06/28/17 Blood Culture - Preliminary, Resulted No Growth after 48 hours. All Specime... 06/28/17 Blood Culture - Preliminary, Resulted No Growth after 48 hours. All Specime... 06/28/17 Urine Culture - Final, Complete Home Medications Scheduled (Preservision Areds 2) 1 Cap Cap, 1 CAP PO BID, (Reported) Acetaminophen (Tylenol Extra Strength) 500 Mg Tab, 500 MG PO Q4H, (Reported) Aspirin (Aspirin 81) 81 Mg Tab, 81 MG PO QPM, (Reported) Cephalexin Monohydrate (Keflex) 500 Mg Cap, 500 MG PO Q12H, #20 Conjugated Estrogens (Premarin) 1 Dose/30 Gm Cr, 1 DOSE PV QWEEK, (Reported) TUESDAYS Diclofenac Sodium (Diclofenac Sodium Dr) 75 Mg Tab, 75 MG PO DAILY, (Reported) PT STATES SHE IS NOT TAKING WHILE TAKING HER ANTIBIOTIC Famotidine (Famotidine) 20 Mg Tab, 20 MG PO QPM, (Reported) Hydrochlorothiazide (Hydrochlorothiazide) 25 Mg Tab, 25 MG PO DAILY, (Reported) Ibuprofen (Ibu-200) 200 Mg Tab, 200 MG PO Q4H, (Reported) Latanoprost (Latanoprost) 50 Drop/2.5 Ml Soln, 1 DROP OU QHS, (Reported) Levothyroxine Sodium (Synthroid) 50 Mcg Tab, 50 MCG PO DAILY, (Reported) Magnesium Chloride (Mag64) 64 Mg Tabcr, 64 MG PO BID, (Reported) PT STATES SHE IS NOT TAKING WHILE TAKING HER ANTIBIOTIC Polyethylene Glycol (Miralax) 1 Pow Pow, 17 GM PO DAILY, (Reported) Potassium Chloride (Potassium Chloride Sr) 10 Meq Tab, 10 MEQ PO QPM, (Reported) Timolol Maleate (Timolol Maleate) 0.5 % Nora, 1 DROP OU BID, (Reported) AM AND NOON Vitamin D (Drisdol) 50,000 Unit Cap, 50,000 UNIT PO QMONTH, (Reported) Scheduled PRN Fluticasone Propionate (Fluticasone Propionate) 50 Mcg/Act Spr, 1 SPRAY NA BID PRN for CONGESTION, (Reported) Allergies Coded Allergies: No Known Allergies (Unverified , 11/24/17) GERARDO CEDILLO MD Jun 30, 2017 18:47
[2017-06-30] MEDS: FAMOTIDINE 20 MG TAB PO SCH (20:07)
[2017-06-30] MEDS: ASPIRIN 81 MG ENTERIC TAB PO SCH (20:07)
[2017-06-30] MEDS: POTASSIUM CHLORIDE 10 MEQ SR TABLET PO SCH (20:07)
[2017-06-30] MEDS: LATANOPROST 0.005% OPHTH SOLN 2.5 ML OU SCH (20:07)
[2017-06-30] MEDS: ANALGESIC BALM CRM 120 GM TOP PRN (20:08)
[2017-06-30] MEDS: MORPHINE 2 MG/ML 1ML SYRINGE IV PRN (21:45)
[2017-06-30 22:00] VITALS: BP 156/76
[2017-07-01] MEDS: ACETAMINOPHEN 500 MG TAB PO SCH ×5 (03:26→19:55)
[2017-07-01] MEDS: LEVOTHYROXINE 37.5MCG PER 1/2TAB (0.0375MG) PO SCH (05:45)
[2017-07-01] MEDS: HEPARIN SOD (PORCINE) 5000 UNITS/ML VIAL SC SCH ×3 (05:45→22:17)
[2017-07-01 06:00] VITALS: BP 139/71
[2017-07-01 06:54] LABS: MEAN CORPUSCULAR HEMOGLOBIN 31.3 pg (27.0-33.0); MEAN CORPUSCULAR HGB CONC 33.9 g/dl (32.0-36.5); MEAN CORPUSCULAR VOLUME 92.2 fl (80.0-96.0); PLATELET COUNT, AUTOMATED 346 10^3/uL (150-450); RED CELL DISTRIBUTION WIDTH 12.4 % (11.5-14.5); WHITE BLOOD COUNT 8.8 10^3/uL (4.0-10.0)
[2017-07-01 07:14] LABS: ANION GAP 7 MEQ/L (8-16); BLOOD UREA NITROGEN 10 MG/DL (7-18); CALCIUM LEVEL 8.3 MG/DL (8.8-10.2); CARBON DIOXIDE LEVEL 28 MEQ/L (21-32); CHLORIDE LEVEL 102 MEQ/L (98-107); CREATININE FOR GFR 0.53 MG/DL (0.55-1.02); GLOMERULAR FILTRATION RATE > 60.0 (>39); GLUCOSE, FASTING 92 MG/DL (83-110); POTASSIUM SERUM 3.6 MEQ/L (3.5-5.1); SODIUM LEVEL 137 MEQ/L (136-145)
[2017-07-01 08:33] VITALS: BP 162/87
[2017-07-01] MEDS: NS 1,000 ML IV SCH ×2 (09:22→20:52)
[2017-07-01] MEDS: [UNRECOGNIZED DRUG - OTHER] PO SCH ×2 (09:40→20:17)
[2017-07-01] MEDS: TIMOLOL MALEATE 0.5% OPHTH SOLN 5 ML OU SCH ×2 (09:40→20:19)
[2017-07-01] MEDS: MIRALAX *UNIT DOSE* 17GM PACKET PO SCH (09:40)
[2017-07-01] MEDS: MAGNESIUM CHLORIDE 64 MG TABCR (SLO MAG) PO SCH ×2 (09:40→20:17)
--- NOTE | 2017-07-01 11:09 | IPNPDOC ---
Subjective Date Seen The patient was seen on 07/01/17. Subjective Chief Complaint/HPI The patient is a 76-year-old female admitted with a reason for visit of Back Pain. No acute concerns or changes from yesterday. Was fitted for her brace, and waiting for its arrival and PT. Constitutional: Denies: Chills, Fever Eyes: Denies: Pain, Vision change Pulmonary: Denies: Dyspnea, Cough Cardiovascular: Denies: Chest Pain, Palpitations, Edema, Lt Headedness Gastrointestinal: Denies: Nausea, Vomiting, Abdominal Pain Genitourinary: Denies: Dysuria, Frequency Musculoskeletal: Denies: Joint Pain, Muscle Pain, Spasms Neurological: Denies: Weakness, Numbness Objective Physical Examination General Exam: Positive: Alert, Cooperative, No Acute Distress Eye Exam: Positive: Conjunctiva & lids normal, Negative: Ptosis ENT Exam: Positive: Atraumatic, Mucous membr. moist/pink Neck Exam: Positive: Supple, Negative: JVD, Lymphadenopathy Chest Exam: Positive: Clear to auscultation, Normal air movement, Negative: Wheezing Heart Exam: Positive: Rate Normal, Regular Rhythm, Normal S1, Normal S2 Abdomen Exam: Positive: Normal bowel sounds, Soft, Negative: Tenderness Extremity Exam: Positive: Normal pulses, Negative: Clubbing, Cyanosis, Edema, Tenderness Skin Exam: Positive: Nl turgor and temperature, Negative: Rash Neuro Exam: Positive: Normal Speech, Strength at 5/5 X4 ext, Normal Tone, Sensation Intact Psych Exam: Positive: Mental status NL, Mood NL, Oriented x 3 Assessment /Plan Assessment Compression fracture L1/L2 & L5 Chronic low back pain that recently worsened the past few days. Sharp, intermittent, radiating to bilateral hips, worse with mvmt. Denies paresthesia/ weakness. Compression fractures and spinal stenosis on imaging. Neurosurgery consulted. Appreciate Dr. Moeller's input. Family wants to avoid surgical intervention. Pt has been fitted for customized brace, and waiting on its arrival PT eval pending, on bedrest until brace is fitted, per NeuroSx Pain control with Tylenol & Morphine HTN better controlled with pain control, morphine low sodium diet hold home HCTZ 2/2 hyponatremia UTI will d/c Ceftriaxone as catheterized urine culture negative, no WBC, & pt afebrile blood cultures negative 72 hours Hyponatremia resolved low serum osmoles continue NS IV hydration, monitor Hold home HCTZ Hypothyroidism TSH normal, but elevated T4 & T3. 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 Stitches removed yesterday 07/01 GERD continue home Famotidine Glaucoma continue home Timolol may use own home Areds drops DVT prophylaxis TEDS/SCDs, Heparin sc Plan/VTE VTE Prophylaxis Ordered?: Yes (KAYDEN/SCD) VS, I&O, 24H, Fishbone Vital Signs/I&O Vital Signs Date Time Temp Pulse Resp B/P (MAP) Pulse Ox O2 Delivery O2 Flow Rate FiO2 07/01/17 08:33 97.7 70 20 162/87 (112) 96 Room Air 06/28/17 13:20 2.0 I&O- Last 24 Hours up to 6 AM 07/02/17 06:00 Intake Total 0 ml Output Total 500 ml Balance -500 ml Laboratory Data 24H LABS Laboratory Tests 2 07/01/17 06:14: Nucleated Red Blood Cells % (auto) 0.0, Anion Gap 7L, Glomerular Filtration Rate > 60.0, Blood Urea Nitrogen 10, Creatinine 0.53L, Sodium Level 137, Potassium Level 3.6, Chloride Level 102, Carbon Dioxide Level 28, Calcium Level 8.3L CBC/BMP Laboratory Tests 07/01/17 06:14 Red Blood Count 3.71 L, Mean Corpuscular Volume 92.2, Mean Corpuscular Hemoglobin 31.3, Mean Corpuscular Hemoglobin Concent 33.9, Red Cell Distribution Width 12.4, Calcium Level 8.3 L Microbiology Microbiology 06/28/17 Blood Culture - Preliminary, Resulted No Growth after 72 hours. All specime... 06/28/17 Blood Culture - Preliminary, Resulted No Growth after 72 hours. All specime... 06/28/17 Urine Culture - Final, Complete GME ATTESTATION GME ATTESTATION My faculty preceptor for this patient encounter was physically present during the encounter and was fully available. All aspects of the patient interview, examination, medical decision making process, and medical care plan development were reviewed and approved by the faculty preceptor. The faculty preceptor is aware and concurs with the plan as stated in the body of this note and will attest to such by his/her cosignature. OWEN OSMAN DO Jul 01, 2017 09:50
[2017-07-01] MEDS: CEFTRIAXONE SOD 1 GM in APPROPRIATE DILUENT 1 EA IV SCH (13:00)
[2017-07-01 14:03] VITALS: BP 146/67
[2017-07-01] MEDS: MORPHINE 2 MG/ML 1ML SYRINGE IV PRN (15:00)
--- NOTE | 2017-07-01 19:13 | REP ---
Clinical: Subacute fractures. Technique: Lateral views of the thoracolumbar spine. Findings: Subacute compression fracture at L2 65% loss of anterior vertebral body height and subacute L1 vertebral body fracture with minimal loss of height. Moderate multilevel degenerative changes are noted throughout the remainder of the thoracolumbar spine. Kyphosis and lordosis are maintained respectively. No evidence for anterolisthesis. Impression: Subacute compression fractures at L2 and L1 as noted on recent MRI. Signed by Asa Hurley MD 07/01/2017 07:05 P
[2017-07-01] MEDS: ASPIRIN 81 MG ENTERIC TAB PO SCH (20:16)
[2017-07-01] MEDS: FAMOTIDINE 20 MG TAB PO SCH (20:16)
[2017-07-01] MEDS: LATANOPROST 0.005% OPHTH SOLN 2.5 ML OU SCH (20:16)
[2017-07-01] MEDS: POTASSIUM CHLORIDE 10 MEQ SR TABLET PO SCH (20:16)
[2017-07-01 22:00] VITALS: BP 149/71
[2017-07-01] MEDS: FLUTICASONE PROP 0.05% NASAL SPRAY 16 GM (FLONASE) PRN (22:17)
[2017-07-01] MEDS: ANALGESIC BALM CRM 120 GM TOP PRN (22:22)
[2017-07-02] MEDS: ACETAMINOPHEN 500 MG TAB PO SCH ×6 (00:41→22:21)
[2017-07-02] MEDS: LEVOTHYROXINE 37.5MCG PER 1/2TAB (0.0375MG) PO SCH (05:42)
[2017-07-02] MEDS: HEPARIN SOD (PORCINE) 5000 UNITS/ML VIAL SC SCH ×3 (05:42→21:00)
[2017-07-02 06:00] VITALS: BP 150/71
[2017-07-02 06:58] LABS: MEAN CORPUSCULAR HEMOGLOBIN 31.3 pg (27.0-33.0); MEAN CORPUSCULAR HGB CONC 33.6 g/dl (32.0-36.5); PLATELET COUNT, AUTOMATED 376 10^3/uL (150-450); RED CELL DISTRIBUTION WIDTH 12.6 % (11.5-14.5); WHITE BLOOD COUNT 8.7 10^3/uL (4.0-10.0)
[2017-07-02 07:13] LABS: ANION GAP 6 MEQ/L (8-16); BLOOD UREA NITROGEN 10 MG/DL (7-18); CALCIUM LEVEL 8.6 MG/DL (8.8-10.2); CARBON DIOXIDE LEVEL 28 MEQ/L (21-32); CHLORIDE LEVEL 103 MEQ/L (98-107); CREATININE FOR GFR 0.48 MG/DL (0.55-1.02); GLOMERULAR FILTRATION RATE > 60.0 (>39); GLUCOSE, FASTING 95 MG/DL (83-110); POTASSIUM SERUM 3.8 MEQ/L (3.5-5.1); SODIUM LEVEL 137 MEQ/L (136-145)
[2017-07-02] MEDS: MIRALAX *UNIT DOSE* 17GM PACKET PO SCH (08:57)
[2017-07-02] MEDS: MAGNESIUM CHLORIDE 64 MG TABCR (SLO MAG) PO SCH ×2 (08:59→21:00)
[2017-07-02] MEDS: TIMOLOL MALEATE 0.5% OPHTH SOLN 5 ML OU SCH ×2 (09:00→21:00)
[2017-07-02] MEDS: [UNRECOGNIZED DRUG - OTHER] PO SCH ×2 (09:00→20:59)
[2017-07-02] MEDS ORDERED: VITAMIN D 50,000 UNITS CAPSULE (ERGOCALCIFEROL 1.25MG) PO ONE (12:00)
--- NOTE | 2017-07-02 13:50 | IPNPDOC ---
Subjective Date Seen The patient was seen on 07/02/17. Subjective Chief Complaint/HPI The patient is a 76-year-old female admitted with a reason for visit of Back Pain. No acute complaints. Was fitted and received spine brace yesterday. Pt resting comfortably in bed. States she walked a few steps yesterday for back imaging, and denies paresthesia, motor/sensory loss, loss of bowel/bladder function. Will participate in PT today. Constitutional: Denies: Chills, Fever Eyes: Denies: Pain, Vision change ENT: Denies: Head Aches, Ear Pain, Dysphagia Pulmonary: Denies: Dyspnea, Cough Cardiovascular: Denies: Chest Pain, Palpitations, Edema, Lt Headedness Gastrointestinal: Denies: Nausea, Vomiting, Abdominal Pain Genitourinary: Denies: Dysuria, Frequency Neurological: Denies: Weakness, Numbness, Incoordination Psych: Reports: Mood Normal Objective Physical Examination General Exam: Positive: Alert, Cooperative, No Acute Distress Eye Exam: Positive: Conjunctiva & lids normal, Negative: Ptosis ENT Exam: Positive: Atraumatic, Mucous membr. moist/pink Neck Exam: Positive: Supple, Negative: JVD, Lymphadenopathy Chest Exam: Positive: Clear to auscultation, Normal air movement, Negative: Wheezing Heart Exam: Positive: Rate Normal, Regular Rhythm, Normal S1, Normal S2 Abdomen Exam: Positive: Normal bowel sounds, Soft, Negative: Tenderness Extremity Exam: Positive: Normal pulses, Negative: Clubbing, Cyanosis, Edema, Tenderness Skin Exam: Positive: Nl turgor and temperature, Negative: Rash Neuro Exam: Positive: Normal Speech, Strength at 5/5 X4 ext, Normal Tone, Sensation Intact Psych Exam: Positive: Mental status NL, Mood NL, Oriented x 3 Assessment /Plan Assessment Compression fracture L1/L2 & L5 Chronic low back pain that recently worsened the past few days. Sharp, intermittent, radiating to bilateral hips, worse with mvmt. Denies paresthesia/ weakness. Compression fractures and spinal stenosis on imaging. Neurosurgery consulted. Appreciate Dr. Moeller's input. Pt received customized brace and thoracic spine x-ray today revealed no changes will be participating in PT with brace Pain control with Tylenol & Morphine HTN better controlled with pain control, morphine low sodium diet hold home HCTZ 2/2 hyponatremia UTI resolved. Ceftriaxone d/lamont yesterday urine & blood culture negative Hyponatremia continues to be normal. Will d/c fluids today. Hypothyroidism TSH normal, but elevated T4 & T3. 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 Stitches removed 07/01 GERD continue home Famotidine Glaucoma continue home Timolol may use own home Areds drops DVT prophylaxis TEDS/SCDs, Heparin sc DISPOSITION: medically stable. Pending clearance from PT & Neurosurgery Plan/VTE VTE Prophylaxis Ordered?: Yes (KAYDEN/SCD) VS, I&O, 24H, Fishbone Vital Signs/I&O Vital Signs Date Time Temp Pulse Resp B/P (MAP) Pulse Ox O2 Delivery O2 Flow Rate FiO2 07/02/17 06:00 96.3 60 17 150/71 (97) 93 Room Air 06/28/17 13:20 2.0 I&O- Last 24 Hours up to 6 AM 07/03/17 06:00 Intake Total 240 ml Output Total 1000 ml Balance -760 ml Laboratory Data 24H LABS Laboratory Tests 2 07/02/17 06:30: Nucleated Red Blood Cells % (auto) 0.0, Anion Gap 6L, Glomerular Filtration Rate > 60.0, Blood Urea Nitrogen 10, Creatinine 0.48L, Sodium Level 137, Potassium Level 3.8, Chloride Level 103, Carbon Dioxide Level 28, Calcium Level 8.6L CBC/BMP Laboratory Tests 07/02/17 06:30 Red Blood Count 3.74 L, Mean Corpuscular Volume 93.0, Mean Corpuscular Hemoglobin 31.3, Mean Corpuscular Hemoglobin Concent 33.6, Red Cell Distribution Width 12.6, Calcium Level 8.6 L Microbiology Microbiology 06/28/17 Blood Culture - Preliminary, Resulted No Growth after 72 hours. All specime... 06/28/17 Blood Culture - Preliminary, Resulted No Growth after 72 hours. All specime... 06/28/17 Urine Culture - Final, Complete GME ATTESTATION GME ATTESTATION My faculty preceptor for this patient encounter was physically present during the encounter and was fully available. All aspects of the patient interview, examination, medical decision making process, and medical care plan development were reviewed and approved by the faculty preceptor. The faculty preceptor is aware and concurs with the plan as stated in the body of this note and will attest to such by his/her cosignature. OWEN OSMAN DO Jul 02, 2017 12:03
[2017-07-02 14:00] VITALS: BP 148/71
[2017-07-02] MEDS: NS 1,000 ML IV SCH (14:36)
[2017-07-02] MEDS: FAMOTIDINE 20 MG TAB PO SCH (21:00)
[2017-07-02] MEDS: LATANOPROST 0.005% OPHTH SOLN 2.5 ML OU SCH (21:00)
[2017-07-02] MEDS: ASPIRIN 81 MG ENTERIC TAB PO SCH (21:00)
[2017-07-02] MEDS: POTASSIUM CHLORIDE 10 MEQ SR TABLET PO SCH (21:00)
[2017-07-02 22:00] VITALS: BP 138/65
[2017-07-02] MEDS: ANALGESIC BALM CRM 120 GM TOP PRN (22:22)
[2017-07-02] MEDS: FLUTICASONE PROP 0.05% NASAL SPRAY 16 GM (FLONASE) PRN (22:22)
[2017-07-03] MEDS: ACETAMINOPHEN 500 MG TAB PO SCH ×6 (04:00→20:47)
[2017-07-03] MEDS: LEVOTHYROXINE 37.5MCG PER 1/2TAB (0.0375MG) PO SCH (05:31)
[2017-07-03] MEDS: HEPARIN SOD (PORCINE) 5000 UNITS/ML VIAL SC SCH ×3 (05:32→22:00)
[2017-07-03 05:51] LABS: MEAN CORPUSCULAR HEMOGLOBIN 31.7 pg (27.0-33.0); MEAN CORPUSCULAR HGB CONC 34.4 g/dl (32.0-36.5); MEAN CORPUSCULAR VOLUME 92.3 fl (80.0-96.0); PLATELET COUNT, AUTOMATED 434 10^3/uL (150-450); RED CELL DISTRIBUTION WIDTH 12.7 % (11.5-14.5); WHITE BLOOD COUNT 9.4 10^3/uL (4.0-10.0)
[2017-07-03 06:00] VITALS: BP 145/66
[2017-07-03 06:05] LABS: ANION GAP 7 MEQ/L (8-16); BLOOD UREA NITROGEN 13 MG/DL (7-18); CALCIUM LEVEL 8.7 MG/DL (8.8-10.2); CARBON DIOXIDE LEVEL 27 MEQ/L (21-32); CHLORIDE LEVEL 104 MEQ/L (98-107); CREATININE FOR GFR 0.55 MG/DL (0.55-1.02); GLOMERULAR FILTRATION RATE > 60.0 (>39); GLUCOSE, FASTING 99 MG/DL (83-110); POTASSIUM SERUM 4.2 MEQ/L (3.5-5.1); SODIUM LEVEL 138 MEQ/L (136-145)
--- NOTE | 2017-07-03 07:59 | IPNPDOC ---
Subjective Date Seen The patient was seen on 07/03/17. Subjective Chief Complaint/HPI The patient is a 76-year-old female admitted with a reason for visit of Back Pain. No acute complaints. Wore brace and got out of bed yesterday with PT without problem. Dis not walk steps because knees felt week and per pt, it was late in the day and she felt tired. To participate in PT again today. Constitutional: Denies: Chills, Fever Eyes: Denies: Pain, Vision change ENT: Denies: Head Aches Pulmonary: Denies: Dyspnea, Cough Cardiovascular: Denies: Chest Pain, Palpitations, Edema, Lt Headedness Gastrointestinal: Denies: Nausea, Vomiting, Abdominal Pain, Diarrhea, Constipation Genitourinary: Denies: Dysuria Neurological: Denies: Weakness, Numbness, Incoordination Psych: Reports: Mood Normal Objective Physical Examination General Exam: Positive: Alert, Cooperative, No Acute Distress Eye Exam: Positive: Conjunctiva & lids normal, Negative: Ptosis ENT Exam: Positive: Atraumatic, Mucous membr. moist/pink Neck Exam: Positive: Supple, Negative: JVD, Lymphadenopathy Chest Exam: Positive: Clear to auscultation, Normal air movement, Negative: Wheezing Heart Exam: Positive: Rate Normal, Regular Rhythm, Normal S1, Normal S2 Abdomen Exam: Positive: Normal bowel sounds, Soft, Negative: Tenderness Extremity Exam: Positive: Normal pulses, Negative: Clubbing, Cyanosis, Edema, Tenderness Skin Exam: Positive: Nl turgor and temperature, Negative: Rash Neuro Exam: Positive: Normal Speech, Strength at 5/5 X4 ext, Normal Tone, Sensation Intact Psych Exam: Positive: Mental status NL, Mood NL, Oriented x 3 Assessment /Plan Assessment Compression fracture L1/L2 & L5 Chronic low back pain that recently worsened the past few days. Sharp, intermittent, radiating to bilateral hips, worse with mvmt. Denies paresthesia/ weakness. Compression fractures and spinal stenosis on imaging. Neurosurgery consulted. Appreciate Dr. Moeller's input will be participating in PT with brace Pain control with Tylenol & Morphine HTN controlled with pain control, morphine low sodium diet home HCTZ was held on admission due to hyponatremia, may resume if needed. BP controlled without it so far Hyponatremia continues to be normal. Fluids d/lamont yesterday Hypothyroidism TSH normal, but elevated T4 & T3. 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 Stitches removed 07/01 GERD continue home Famotidine Glaucoma continue home Timolol may use own home Areds drops DVT prophylaxis TEDS/SCDs, Heparin sc DISPOSITION: medically stable. Pending clearance from PT & Neurosurgery Plan/VTE VTE Prophylaxis Ordered?: Yes (KAYDEN/SCD) VS, I&O, 24H, Fishbone Vital Signs/I&O Vital Signs Date Time Temp Pulse Resp B/P (MAP) Pulse Ox O2 Delivery O2 Flow Rate FiO2 07/03/17 06:00 97.6 57 18 145/66 (92) 93 Room Air 06/28/17 13:20 2.0 Laboratory Data 24H LABS Laboratory Tests 2 07/03/17 05:38: Nucleated Red Blood Cells % (auto) 0.0, Anion Gap 7L, Glomerular Filtration Rate > 60.0, Blood Urea Nitrogen 13, Creatinine 0.55, Sodium Level 138, Potassium Level 4.2, Chloride Level 104, Carbon Dioxide Level 27, Calcium Level 8.7L CBC/BMP Laboratory Tests 07/03/17 05:38 Red Blood Count 3.88 L, Mean Corpuscular Volume 92.3, Mean Corpuscular Hemoglobin 31.7, Mean Corpuscular Hemoglobin Concent 34.4, Red Cell Distribution Width 12.7, Calcium Level 8.7 L Microbiology Microbiology 06/28/17 Blood Culture - Preliminary, Resulted No Growth after 72 hours. All specime... 06/28/17 Blood Culture - Preliminary, Resulted No Growth after 72 hours. All specime... 06/28/17 Urine Culture - Final, Complete GME ATTESTATION GME ATTESTATION My faculty preceptor for this patient encounter was physically present during the encounter and was fully available. All aspects of the patient interview, examination, medical decision making process, and medical care plan development were reviewed and approved by the faculty preceptor. The faculty preceptor is aware and concurs with the plan as stated in the body of this note and will attest to such by his/her cosignature. OWEN OSMAN DO Jul 03, 2017 07:59
[2017-07-03] MEDS: MIRALAX *UNIT DOSE* 17GM PACKET PO SCH (09:00)
[2017-07-03] MEDS: [UNRECOGNIZED DRUG - OTHER] PO SCH ×2 (09:19→20:49)
[2017-07-03] MEDS: MAGNESIUM CHLORIDE 64 MG TABCR (SLO MAG) PO SCH ×2 (09:19→20:49)
[2017-07-03] MEDS: TIMOLOL MALEATE 0.5% OPHTH SOLN 5 ML OU SCH ×2 (09:20→20:47)
[2017-07-03 14:00] VITALS: BP 160/80
[2017-07-03] MEDS: FAMOTIDINE 20 MG TAB PO SCH (20:47)
[2017-07-03] MEDS: LATANOPROST 0.005% OPHTH SOLN 2.5 ML OU SCH (20:47)
[2017-07-03] MEDS: ANALGESIC BALM CRM 120 GM TOP PRN (20:47)
[2017-07-03] MEDS: FLUTICASONE PROP 0.05% NASAL SPRAY 16 GM (FLONASE) PRN (20:48)
[2017-07-03] MEDS: POTASSIUM CHLORIDE 10 MEQ SR TABLET PO SCH (20:48)
[2017-07-03] MEDS: ASPIRIN 81 MG ENTERIC TAB PO SCH (20:48)
[2017-07-03 22:00] VITALS: BP 131/66
[2017-07-04] MEDS: ACETAMINOPHEN 500 MG TAB PO SCH ×6 (04:02→21:13)
[2017-07-04 06:00] VITALS: BP 126/77
[2017-07-04] MEDS: LEVOTHYROXINE 37.5MCG PER 1/2TAB (0.0375MG) PO SCH (06:03)
[2017-07-04] MEDS: HEPARIN SOD (PORCINE) 5000 UNITS/ML VIAL SC SCH ×3 (06:04→21:15)
[2017-07-04 06:09] LABS: MEAN CORPUSCULAR HEMOGLOBIN 31.4 pg (27.0-33.0); MEAN CORPUSCULAR HGB CONC 34.1 g/dl (32.0-36.5); MEAN CORPUSCULAR VOLUME 92.2 fl (80.0-96.0); PLATELET COUNT, AUTOMATED 417 10^3/uL (150-450); RED CELL DISTRIBUTION WIDTH 12.8 % (11.5-14.5); WHITE BLOOD COUNT 8.9 10^3/uL (4.0-10.0)
[2017-07-04 06:34] LABS: ANION GAP 7 MEQ/L (8-16); BLOOD UREA NITROGEN 15 MG/DL (7-18); CALCIUM LEVEL 9.1 MG/DL (8.8-10.2); CARBON DIOXIDE LEVEL 26 MEQ/L (21-32); CHLORIDE LEVEL 103 MEQ/L (98-107); GLOMERULAR FILTRATION RATE > 60.0 (>39); GLUCOSE, FASTING 97 MG/DL (83-110); POTASSIUM SERUM 4.1 MEQ/L (3.5-5.1); SODIUM LEVEL 136 MEQ/L (136-145)
[2017-07-04] MEDS: MIRALAX *UNIT DOSE* 17GM PACKET PO SCH (08:47)
[2017-07-04] MEDS: MAGNESIUM CHLORIDE 64 MG TABCR (SLO MAG) PO SCH ×2 (08:48→21:00)
[2017-07-04] MEDS: TIMOLOL MALEATE 0.5% OPHTH SOLN 5 ML OU SCH ×2 (08:48→21:14)
[2017-07-04] MEDS: [UNRECOGNIZED DRUG - OTHER] PO SCH ×2 (08:48→21:00)
--- NOTE | 2017-07-04 10:19 | IPNPDOC ---
Text Note Date of Service The patient was seen on 07/04/17. NOTE Subjective: Patient seen and examined at bedside. No acute overnight events reported. Patient has no new medical complaints. She is optimistic and motivated to proceed with PT. Objective: General: NAD, sitting comfortably in chair wearing full back brace, at bedside HEENT: NC/AT, EOMI, PERRL Lungs: CTA B/L Heart: +S1S2, RRR Abd: soft, NT, +BS Ext: no edema Psych: AAOx3 Assessment/Plan: The patient is a 76-year-old female admitted with a reason for visit of Back Pain, found to have L1/L2, L5 compression fractures. #Compression fracture L1/L2 & L5 - TLSO back brace - continue to follow as per NSx - assistance appreciated - continue PT as per NSx - Pain control with Tylenol & Morphine #HTN controlled with pain control, morphine low sodium diet home HCTZ was held on admission due to hyponatremia #Hyponatremia - HCTZ as per home meds discontinued - resolved s/p iv fluids #Hypothyroidism TSH normal, but elevated T4 & T3. Was on 50mcg dose at home, continue lower dose 37.5mcg; follow up as o/p No proptosis or myxedema on exam #Squamous cell cancer on right hand excised by [facility] Nurse Practitioners ~ 2 weeks ago. Stitches removed 07/01 #GERD continue home Famotidine #Glaucoma continue home Timolol may use own home Areds drops #DVT prophylaxis TEDS/SCDs, Heparin sc DISPOSITION: medically stable. Pending clearance from PT & Neurosurgery VS,Nancy, I+O VS, Nancy, I+O Laboratory Tests 07/04/17 05:30 Red Blood Count 3.85 L, Mean Corpuscular Volume 92.2, Mean Corpuscular Hemoglobin 31.4, Mean Corpuscular Hemoglobin Concent 34.1, Red Cell Distribution Width 12.8, Calcium Level 9.1 Vital Signs Date Time Temp Pulse Resp B/P (MAP) Pulse Ox O2 Delivery O2 Flow Rate FiO2 07/04/17 09:57 Room Air 07/04/17 06:00 98.3 70 18 126/77 (93) 95 06/28/17 13:20 2.0 GINA GALLARDO MD Jul 04, 2017 10:19
[2017-07-04 14:00] VITALS: BP 145/65
[2017-07-04] MEDS: ASPIRIN 81 MG ENTERIC TAB PO SCH (21:14)
[2017-07-04] MEDS: FAMOTIDINE 20 MG TAB PO SCH (21:14)
[2017-07-04] MEDS: POTASSIUM CHLORIDE 10 MEQ SR TABLET PO SCH (21:14)
[2017-07-04] MEDS: LATANOPROST 0.005% OPHTH SOLN 2.5 ML OU SCH (21:14)
[2017-07-04] MEDS: FLUTICASONE PROP 0.05% NASAL SPRAY 16 GM (FLONASE) PRN (21:14)
[2017-07-04] MEDS: ANALGESIC BALM CRM 120 GM TOP PRN (21:14)
[2017-07-04 22:00] VITALS: BP 142/81
[2017-07-05] MEDS: ACETAMINOPHEN 500 MG TAB PO SCH ×6 (03:57→21:49)
[2017-07-05] MEDS: HEPARIN SOD (PORCINE) 5000 UNITS/ML VIAL SC SCH ×3 (05:44→21:49)
[2017-07-05] MEDS: LEVOTHYROXINE 37.5MCG PER 1/2TAB (0.0375MG) PO SCH (05:44)
[2017-07-05 06:00] VITALS: BP 133/73
[2017-07-05 06:00] LABS: MEAN CORPUSCULAR HEMOGLOBIN 31.4 pg (27.0-33.0); MEAN CORPUSCULAR HGB CONC 33.3 g/dl (32.0-36.5); MEAN CORPUSCULAR VOLUME 94.3 fl (80.0-96.0); PLATELET COUNT, AUTOMATED 433 10^3/uL (150-450); RED CELL DISTRIBUTION WIDTH 13.2 % (11.5-14.5); WHITE BLOOD COUNT 9.3 10^3/uL (4.0-10.0)
[2017-07-05 06:23] LABS: ANION GAP 5 MEQ/L (8-16); BLOOD UREA NITROGEN 16 MG/DL (7-18); CALCIUM LEVEL 9.1 MG/DL (8.8-10.2); CARBON DIOXIDE LEVEL 30 MEQ/L (21-32); CHLORIDE LEVEL 102 MEQ/L (98-107); CREATININE FOR GFR 0.65 MG/DL (0.55-1.02); GLOMERULAR FILTRATION RATE > 60.0 (>39); GLUCOSE, FASTING 95 MG/DL (83-110); POTASSIUM SERUM 4.2 MEQ/L (3.5-5.1); SODIUM LEVEL 137 MEQ/L (136-145)
--- NOTE | 2017-07-05 08:32 | IPNPDOC ---
Subjective Date Seen The patient was seen on 07/05/17. Subjective Chief Complaint/HPI The patient is a 76-year-old female admitted with a reason for visit of Back Pain. No acute complaints. States she has been participating in PT and ambulating multiple times in the [place] and sitting upright in chair with brace. Constitutional: Denies: Chills, Fever Pulmonary: Denies: Dyspnea, Cough Cardiovascular: Denies: Chest Pain, Palpitations, Edema, Lt Headedness Gastrointestinal: Denies: Nausea, Vomiting, Abdominal Pain Genitourinary: Denies: Dysuria, Frequency Hematologic: Reports: Bruising (abdomen from heparin) Neurological: Denies: Weakness, Numbness, Incoordination Objective Physical Examination General Exam: Positive: Alert, Cooperative, No Acute Distress Eye Exam: Positive: Conjunctiva & lids normal, Negative: Ptosis ENT Exam: Positive: Atraumatic, Mucous membr. moist/pink Neck Exam: Positive: Supple, Negative: JVD, Lymphadenopathy Chest Exam: Positive: Clear to auscultation, Normal air movement, Negative: Wheezing Heart Exam: Positive: Rate Normal, Regular Rhythm, Normal S1, Normal S2 Abdomen Exam: Positive: Normal bowel sounds, Soft, Other (mild bruising rt lower quadrant), Negative: Tenderness Extremity Exam: Positive: Normal pulses, Negative: Clubbing, Cyanosis, Edema, Tenderness Skin Exam: Positive: Nl turgor and temperature, Negative: Rash Neuro Exam: Positive: Normal Speech, Strength at 5/5 X4 ext, Normal Tone, Sensation Intact Psych Exam: Positive: Mental status NL, Mood NL, Oriented x 3 Assessment /Plan Assessment Compression fracture L1/L2 & L5 Chronic low back pain that recently worsened the past few days. Sharp, intermittent, radiating to bilateral hips, worse with mvmt. Denies paresthesia/ weakness. Compression fractures and spinal stenosis on imaging. Neurosurgery signed off with recommendation to f/u with Dr. Moreno outpatient and imaging in 3 mos has been participating in PT with TLSO brace, ambulating around halls, and sitting up in chair without complaint Pain control with Tylenol & Morphine ARU screen pending HTN controlled with pain control, morphine low sodium diet home HCTZ was held on admission due to hyponatremia, may resume if needed. BP controlled without it so far Hypothyroidism TSH normal, but elevated T4 & T3. 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 Stitches removed 07/01 GERD continue home Famotidine Glaucoma continue home Timolol may use own home Areds drops DVT prophylaxis TEDS/SCDs, Heparin sc DISPOSITION: medically stable. Pending clearance from PT and possible discharge to ARU Plan/VTE VTE Prophylaxis Ordered?: Yes (KAYDEN/SCD) VS, I&O, 24H, Fishbone Vital Signs/I&O Vital Signs Date Time Temp Pulse Resp B/P (MAP) Pulse Ox O2 Delivery O2 Flow Rate FiO2 07/05/17 06:00 97.6 65 18 133/73 (93) 97 Room Air Laboratory Data 24H LABS Laboratory Tests 2 07/05/17 05:12: Nucleated Red Blood Cells % (auto) 0.0, Anion Gap 5L, Glomerular Filtration Rate > 60.0, Blood Urea Nitrogen 16, Creatinine 0.65, Sodium Level 137, Potassium Level 4.2, Chloride Level 102, Carbon Dioxide Level 30, Calcium Level 9.1 CBC/BMP Laboratory Tests 07/05/17 05:12 Red Blood Count 3.85 L, Mean Corpuscular Volume 94.3, Mean Corpuscular Hemoglobin 31.4, Mean Corpuscular Hemoglobin Concent 33.3, Red Cell Distribution Width 13.2, Calcium Level 9.1 Microbiology Microbiology 06/28/17 Blood Culture - Final, Complete NO GROWTH AFTER 5 DAYS 06/28/17 Blood Culture - Final, Complete NO GROWTH AFTER 5 DAYS 06/28/17 Urine Culture - Final, Complete GME ATTESTATION GME ATTESTATION My faculty preceptor for this patient encounter was physically present during the encounter and was fully available. All aspects of the patient interview, examination, medical decision making process, and medical care plan development were reviewed and approved by the faculty preceptor. The faculty preceptor is aware and concurs with the plan as stated in the body of this note and will attest to such by his/her cosignature. OWEN OSMAN DO Jul 05, 2017 08:32
[2017-07-05] MEDS: MAGNESIUM CHLORIDE 64 MG TABCR (SLO MAG) PO SCH ×2 (09:08→21:49)
[2017-07-05] MEDS: TIMOLOL MALEATE 0.5% OPHTH SOLN 5 ML OU SCH ×2 (09:09→21:47)
[2017-07-05] MEDS: MIRALAX *UNIT DOSE* 17GM PACKET PO SCH (09:09)
[2017-07-05] MEDS: [UNRECOGNIZED DRUG - OTHER] PO SCH (09:09)
[2017-07-05 14:00] VITALS: BP 111/64
[2017-07-05] MEDS: FAMOTIDINE 20 MG TAB PO SCH (21:47)
[2017-07-05] MEDS: LATANOPROST 0.005% OPHTH SOLN 2.5 ML OU SCH (21:47)
[2017-07-05] MEDS: ASPIRIN 81 MG ENTERIC TAB PO SCH (21:47)
[2017-07-05] MEDS: POTASSIUM CHLORIDE 10 MEQ SR TABLET PO SCH (21:48)
[2017-07-05 22:00] VITALS: BP 139/63
[2017-07-05] MEDS: FLUTICASONE PROP 0.05% NASAL SPRAY 16 GM (FLONASE) PRN (22:15)
[2017-07-05] MEDS: ANALGESIC BALM CRM 120 GM TOP PRN (22:15)
[2017-07-06] MEDS: ACETAMINOPHEN 500 MG TAB PO SCH ×7 (00:22→23:59)
[2017-07-06] MEDS: LEVOTHYROXINE 37.5MCG PER 1/2TAB (0.0375MG) PO SCH (05:38)
[2017-07-06] MEDS: HEPARIN SOD (PORCINE) 5000 UNITS/ML VIAL SC SCH ×3 (05:38→21:42)
[2017-07-06 06:00] VITALS: BP 123/60
[2017-07-06] MEDS: OCUVITE 1 TAB PO SCH (09:17)
[2017-07-06] MEDS: MIRALAX *UNIT DOSE* 17GM PACKET PO SCH (09:17)
[2017-07-06] MEDS: MAGNESIUM CHLORIDE 64 MG TABCR (SLO MAG) PO SCH ×2 (09:18→20:30)
[2017-07-06] MEDS: TIMOLOL MALEATE 0.5% OPHTH SOLN 5 ML OU SCH ×2 (09:19→20:31)
--- NOTE | 2017-07-06 11:32 | IPNPDOC ---
Subjective Date Seen The patient was seen on 07/06/17. Subjective Chief Complaint/HPI The patient is a 76-year-old female admitted with a reason for visit of Back Pain. No acute complaints. Ambulating and sitting up with TLSO brace without problem, denies back pain and paresthesia. Constitutional: Denies: Chills, Fever ENT: Denies: Head Aches, Dysphagia Pulmonary: Denies: Dyspnea, Cough Cardiovascular: Denies: Chest Pain, Palpitations, Edema, Lt Headedness Gastrointestinal: Denies: Nausea, Vomiting, Abdominal Pain Genitourinary: Denies: Dysuria Musculoskeletal: Denies: Back Pain, Leg Pain, Foot Pain Neurological: Denies: Weakness, Numbness Psych: Reports: Mood Normal Objective Physical Examination General Exam: Positive: Alert, Cooperative, No Acute Distress Eye Exam: Positive: Conjunctiva & lids normal, Negative: Ptosis ENT Exam: Positive: Atraumatic, Mucous membr. moist/pink Neck Exam: Positive: Supple, Negative: JVD, Lymphadenopathy Chest Exam: Positive: Clear to auscultation, Normal air movement, Negative: Wheezing Heart Exam: Positive: Rate Normal, Regular Rhythm, Normal S1, Normal S2 Abdomen Exam: Positive: Normal bowel sounds, Soft, Other (mild bruising rt lower quadrant), Negative: Tenderness Extremity Exam: Positive: Normal pulses, Negative: Clubbing, Cyanosis, Edema, Tenderness Skin Exam: Positive: Nl turgor and temperature, Negative: Rash Neuro Exam: Positive: Normal Speech, Strength at 5/5 X4 ext, Normal Tone, Sensation Intact Psych Exam: Positive: Mental status NL, Mood NL, Oriented x 3 Assessment /Plan Assessment Compression fracture L1/L2 & L5 Chronic low back pain that recently worsened the past few days. Sharp, intermittent, radiating to bilateral hips, worse with mvmt. Denies paresthesia/ weakness. Compression fractures and spinal stenosis on imaging. Neurosurgery signed off with recommendation to f/u with Dr. Moreno outpatient and imaging in 3 mos has been participating in PT with TLSO brace, ambulating around halls, and sitting up in chair without complaint Pain control with Tylenol & Morphine ARU screen pending HTN controlled with pain control, morphine low sodium diet home HCTZ was held on admission due to hyponatremia, may resume if needed. BP controlled without it so far Hypothyroidism TSH normal, but elevated T4 & T3. 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 Stitches removed 07/01 GERD continue home Famotidine Glaucoma continue home Timolol may use own home Areds drops DVT prophylaxis TEDS/SCDs, Heparin sc DISPOSITION: medically stable. Pending ARU screen Plan/VTE VTE Prophylaxis Ordered?: Yes (KAYDEN/SCD) VS, I&O, 24H, Fishbone Vital Signs/I&O Vital Signs Date Time Temp Pulse Resp B/P (MAP) Pulse Ox O2 Delivery O2 Flow Rate FiO2 07/06/17 06:00 97.3 60 18 123/60 (81) 96 Room Air Laboratory Data Microbiology Microbiology 06/28/17 Blood Culture - Final, Complete NO GROWTH AFTER 5 DAYS 06/28/17 Blood Culture - Final, Complete NO GROWTH AFTER 5 DAYS 06/28/17 Urine Culture - Final, Complete GME ATTESTATION GME ATTESTATION My faculty preceptor for this patient encounter was physically present during the encounter and was fully available. All aspects of the patient interview, examination, medical decision making process, and medical care plan development were reviewed and approved by the faculty preceptor. The faculty preceptor is aware and concurs with the plan as stated in the body of this note and will attest to such by his/her cosignature. OWEN OSMAN DO Jul 06, 2017 11:32
[2017-07-06 14:00] VITALS: BP 172/78
[2017-07-06 18:55] VITALS: BP 185/84
[2017-07-06] MEDS: ASPIRIN 81 MG ENTERIC TAB PO SCH (20:26)
[2017-07-06] MEDS: FAMOTIDINE 20 MG TAB PO SCH (20:27)
[2017-07-06] MEDS: POTASSIUM CHLORIDE 10 MEQ SR TABLET PO SCH (20:30)
[2017-07-06] MEDS: LATANOPROST 0.005% OPHTH SOLN 2.5 ML OU SCH (20:32)
[2017-07-06] MEDS: FLUTICASONE PROP 0.05% NASAL SPRAY 16 GM (FLONASE) PRN (20:32)
[2017-07-06] MEDS: ANALGESIC BALM CRM 120 GM TOP PRN (20:34)
[2017-07-06 22:00] VITALS: BP 149/69
[2017-07-07] MEDS: ACETAMINOPHEN 500 MG TAB PO SCH ×5 (04:14→20:35)
[2017-07-07 06:00] VITALS: BP 158/84
[2017-07-07] MEDS: LEVOTHYROXINE 37.5MCG PER 1/2TAB (0.0375MG) PO SCH (06:05)
[2017-07-07] MEDS: HEPARIN SOD (PORCINE) 5000 UNITS/ML VIAL SC SCH ×3 (06:06→21:24)
[2017-07-07] MEDS: OCUVITE 1 TAB PO SCH (09:47)
[2017-07-07] MEDS: MAGNESIUM CHLORIDE 64 MG TABCR (SLO MAG) PO SCH ×2 (09:47→20:35)
[2017-07-07] MEDS: MIRALAX *UNIT DOSE* 17GM PACKET PO SCH (09:47)
[2017-07-07] MEDS: TIMOLOL MALEATE 0.5% OPHTH SOLN 5 ML OU SCH ×2 (09:49→20:37)
[2017-07-07 14:00] VITALS: BP 133/77
--- NOTE | 2017-07-07 18:12 | IPNPDOC ---
Subjective Date Seen The patient was seen on 07/07/17. Subjective Chief Complaint/HPI The patient is a 76-year-old female admitted with a reason for visit of Back Pain. No acute complaints. Doing well with PT. Constitutional: Denies: Chills, Fever Eyes: Denies: Pain ENT: Denies: Head Aches Pulmonary: Denies: Dyspnea, Cough Cardiovascular: Denies: Chest Pain, Palpitations Gastrointestinal: Denies: Nausea, Vomiting, Abdominal Pain Musculoskeletal: Denies: Neck Pain, Back Pain Neurological: Denies: Weakness, Numbness Psych: Reports: Mood Normal Objective Physical Examination General Exam: Positive: Alert, Cooperative, No Acute Distress Eye Exam: Positive: Conjunctiva & lids normal, Negative: Ptosis ENT Exam: Positive: Atraumatic, Mucous membr. moist/pink Neck Exam: Positive: Supple, Negative: JVD, Lymphadenopathy Chest Exam: Positive: Clear to auscultation, Normal air movement, Negative: Wheezing Heart Exam: Positive: Rate Normal, Regular Rhythm, Normal S1, Normal S2 Abdomen Exam: Positive: Normal bowel sounds, Soft, Other (mild bruising rt lower quadrant), Negative: Tenderness Extremity Exam: Positive: Normal pulses, Negative: Clubbing, Cyanosis, Edema, Tenderness Skin Exam: Positive: Nl turgor and temperature, Negative: Rash Neuro Exam: Positive: Normal Speech, Strength at 5/5 X4 ext, Normal Tone, Sensation Intact Psych Exam: Positive: Mental status NL, Mood NL, Oriented x 3 Assessment /Plan Assessment Compression fracture L1/L2 & L5 Chronic low back pain that recently worsened the past few days. Sharp, intermittent, radiating to bilateral hips, worse with mvmt. Denies paresthesia/ weakness. Compression fractures and spinal stenosis on imaging. Neurosurgery signed off with recommendation to f/u with Dr. Moreno outpatient and imaging in 3 mos has been participating in PT with TLSO brace, ambulating around halls, and sitting up in chair without complaint Pain control with Tylenol & Morphine ARU screen pending. Seeking home health services HTN controlled with pain control, morphine low sodium diet home HCTZ was held on admission due to hyponatremia, may resume if needed. BP controlled without it so far Hypothyroidism TSH normal, but elevated T4 & T3. 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 Stitches removed 07/01 GERD continue home Famotidine Glaucoma continue home Timolol may use own home Areds drops DVT prophylaxis TEDS/SCDs, Heparin sc DISPOSITION: medically stable. Pending ARU screen. Likely will need home health services. Plan/VTE VTE Prophylaxis Ordered?: Yes (KAYDEN/SCD) VS, I&O, 24H, Fishbone Vital Signs/I&O Vital Signs Date Time Temp Pulse Resp B/P (MAP) Pulse Ox O2 Delivery O2 Flow Rate FiO2 07/07/17 14:00 97.2 73 18 133/77 (95) 96 Room Air I&O- Last 24 Hours up to 6 AM 07/08/17 06:00 Intake Total 1200 ml Output Total 1250 ml Balance -50 ml Laboratory Data Microbiology Microbiology 06/28/17 Blood Culture - Final, Complete NO GROWTH AFTER 5 DAYS 06/28/17 Blood Culture - Final, Complete NO GROWTH AFTER 5 DAYS 06/28/17 Urine Culture - Final, Complete GME ATTESTATION GME ATTESTATION My faculty preceptor for this patient encounter was physically present during the encounter and was fully available. All aspects of the patient interview, examination, medical decision making process, and medical care plan development were reviewed and approved by the faculty preceptor. The faculty preceptor is aware and concurs with the plan as stated in the body of this note and will attest to such by his/her cosignature. OWEN OSMAN DO Jul 07, 2017 18:12
[2017-07-07] MEDS: POTASSIUM CHLORIDE 10 MEQ SR TABLET PO SCH (20:35)
[2017-07-07] MEDS: ASPIRIN 81 MG ENTERIC TAB PO SCH (20:35)
[2017-07-07] MEDS: FAMOTIDINE 20 MG TAB PO SCH (20:35)
[2017-07-07] MEDS: LATANOPROST 0.005% OPHTH SOLN 2.5 ML OU SCH (20:36)
[2017-07-07] MEDS: FLUTICASONE PROP 0.05% NASAL SPRAY 16 GM (FLONASE) PRN (20:44)
[2017-07-07] MEDS: ANALGESIC BALM CRM 120 GM TOP PRN (20:44)
[2017-07-07 22:00] VITALS: BP 151/71
[2017-07-08] MEDS: ACETAMINOPHEN 500 MG TAB PO SCH ×4 (00:13→12:25)
[2017-07-08 06:00] VITALS: BP 129/60
[2017-07-08] MEDS: LEVOTHYROXINE 37.5MCG PER 1/2TAB (0.0375MG) PO SCH (06:11)
[2017-07-08] MEDS: HEPARIN SOD (PORCINE) 5000 UNITS/ML VIAL SC SCH ×2 (06:11→14:23)
[2017-07-08] MEDS: OCUVITE 1 TAB PO SCH (09:21)
[2017-07-08] MEDS: MIRALAX *UNIT DOSE* 17GM PACKET PO SCH (09:21)
[2017-07-08] MEDS: TIMOLOL MALEATE 0.5% OPHTH SOLN 5 ML OU SCH (09:22)
[2017-07-08] MEDS: MAGNESIUM CHLORIDE 64 MG TABCR (SLO MAG) PO SCH (09:22)
[2017-07-08] MEDS ORDERED: LEVO75TA4 PO (11:35)
--- NOTE | 2017-07-08 11:51 | DS.PDOC ---
Discharge Summary General Date of Admission Jun 28, 2017 at 09:51 Date of Discharge 07/08/17 Attending Physician: PANCHO OLVIEROS MD Specialist/Consultants Involve: GERARDO CEDILLO MD Discharge Summary PROCEDURES PERFORMED DURING STAY: None ADMITTING DIAGNOSES: 1. compression fractures of L1/L2 2. hypertensive urgency 3. UTI DISCHARGE DIAGNOSES: compression fractures of L1/L2 hypertensive urgency, resolved UTI, resolved Hypothyroidism Hypertension Macular degeneration-wet GERD Glaucoma Squamous Cell Carcinoma on right hand, dorsal COMPLICATIONS/CHIEF COMPLAINT: Back Pain. HISTORY OF PRESENT ILLNESS: 76-year-old female presented to ED for chronic low back pain that worsened in the few days prior to admission. Described as sharp, located in low back, intermittent, radiating to bilateral hips, worse with movement and at night, and alleviated by heat. Associated with nausea, left lower belly pain, and decreased appetite. Patient denied recent falls or injuries. Per patient, most recent bone density scan done in was normal. Patient was recently seen in ED 2 days prior to this admission and sent home with diagnoses of UTI on cephalexin, and arthritis of bilateral hips. Patient still complained of incontinence and urgency and frequency on this admission. Denied other ROS, including loss of bowel bladder function, saddle anesthesia, motor or sensory weakness, chest pain, shortness of breath. HOSPITAL COURSE: In the ED, WBC was elevated at 13.1, patient hyponatremic at 123, in BP elevated at 209/96 that improved with Iopamidol and Morphine. Other vitals WNL. Imaging revealed compression fractures of L1 and L2, gastritis, cystitis. Pt was started on antibiotics for UTI, which resolved. Hyponatremia resolved with IV fluids. BP normalized with pain control. Neurosurgeon Dr. Zuniga was consulted and ordered a TLSO brace, as family declined surgical intervention. Patient participated in PT and OT, did well enough to not require acute rehab, and was cleared for discharge with Home Health Services and recommended to continue wearing clamshell brace out of bed, and to f/u with PCP Eloise Peñaloza NP within [address] Moreno in 3 months. DISCHARGE MEDICATIONS: Please see below. ALLERGIES: Please see below. PHYSICAL EXAMINATION ON DISCHARGE: VITAL SIGNS: Please see below. GENERAL: NAD, A&O x3 HEENT: normocephalic, atraumatic, EOMI, tongue midline NECK: supple, trachea midline CARDIOVASCULAR EXAMINATION: RRR, normal S1 S2 RESPIRATORY EXAMINATION: CTAB, no wheezing ABDOMINAL EXAMINATION: soft, nontender, nondistended EXTREMITIES: 2+ pulses, no e/c/c SKIN: no visible lesions NEUROLOGICAL EXAMINATION: no motor or sensory deficits PSYCHIATRIC EXAMINATION: normal mood & affect LABORATORY DATA: Please see below. IMAGING: * 06/28/[address]: Acute/subacute compression fracture of L2 vertebral body. The maximum loss of height is estimated at 86%. Associated moderate retropulsion with impingement on the corresponding aspect of the thecal sac. Secondary moderate narrowing of the corresponding aspect of the spinal canal increased kyphosis at the level of the thoracolumbar junction. Acute/subacute compression fracture of L1 vertebral body. The maximum loss of height is estimated at 15%. No associated retropulsion or secondary canal stenosis. * 06/28/17 Abd/Pelvis CT: Acute/subacute compression fractures of L1 and L2 vertebral bodies as detailed above. Gastritis. Prior cholecystectomy. Uncomplicated diverticulosis. Mild cystitis. * 06/28/17 CXR: No acute cardiopulmonary process appreciated. * 06/28/17 Lumbar Spine MRI: 1. Diffuse disc bulges at the L1-2 and L4-5 levels with minimal thecal sac compression. 2. Mild central canal stenosis at the L2-3 level secondary to disc bulge, ligamentous, and facet hypertrophy. 3. Minimal central canal stenosis at the L3-4 level secondary to disc bulge, ligamentous and facet hypertrophy. 4. Minimal central canal stenosis at the L5- S1 level secondary to disc bulge, ligamentous, and facet hypertrophy and osteophyte formation. There is compression of the right L5 nerve in the neural foramen. 5. Subacute chronic L2 vertebral body fracture with moderate height loss. 6. Subacute L1 vertebral body fracture with minimal height loss. * 06/29/17 Thoracic Spine XRay: Subacute compression fractures at L2 and L1 as noted on recent MRI. PROGNOSIS: Good ACTIVITY: As tolerated with TLSO brace DIET: low salt DISPOSITION: Home with home health services DISCHARGE INSTRUCTIONS: 1. F/u with PCP Eloise Peñaloza NP within 1 week, appt 07/14 2. F/u with Neurologist Dr. Moreno in 3 months, appt 10/06 3. Continue wearing TLSO brace out of bed 4. Participate in Home Health Services 5. Return to ED for emergency ITEMS TO FOLLOWUP ON ON OUTPATIENT: 1. L spine xray AP & L standing in 3 months to r/u deformity progression 2. Discuss starting bisphosphonate therapy with PCP 3. Discuss elevated thyroid levels with PCP, Synthroid may require adjustment DISCHARGE CONDITION: Stable TIME SPENT ON DISCHARGE: Greater than 40 minutes. Vital Signs/I&Os Vital Signs Date Time Temp Pulse Resp B/P (MAP) Pulse Ox O2 Delivery O2 Flow Rate FiO2 07/08/17 06:00 97.7 60 16 129/60 (83) 96 Room Air Microbiology Microbiology 06/28/17 Blood Culture - Final, Complete NO GROWTH AFTER 5 DAYS 06/28/17 Blood Culture - Final, Complete NO GROWTH AFTER 5 DAYS 06/28/17 Urine Culture - Final, Complete Discharge Medications Scheduled (Preservision Areds 2) 1 Cap Cap, 1 CAP PO BID, (Reported) Acetaminophen (Tylenol Extra Strength) 500 Mg Tab, 500 MG PO Q4H, (Reported) Aspirin (Aspirin 81) 81 Mg Tab, 81 MG PO QPM, (Reported) Conjugated Estrogens (Premarin) 1 Dose/30 Gm Cr, 1 DOSE PV QWEEK, (Reported) TUESDAYS Diclofenac Sodium (Diclofenac Sodium Dr) 75 Mg Tab, 75 MG PO DAILY, (Reported) PT STATES SHE IS NOT TAKING WHILE TAKING HER ANTIBIOTIC Famotidine (Famotidine) 20 Mg Tab, 20 MG PO QPM, (Reported) Hydrochlorothiazide (Hydrochlorothiazide) 25 Mg Tab, 25 MG PO DAILY, (Reported) Ibuprofen (Ibu-200) 200 Mg Tab, 200 MG PO Q4H, (Reported) Latanoprost (Latanoprost) 50 Drop/2.5 Ml Soln, 1 DROP OU QHS, (Reported) Levothyroxine Sodium (Synthroid) 75 Mcg Tab, 37.5 MCG PO DAILY@06 Magnesium Chloride (Mag64) 64 Mg Tabcr, 64 MG PO BID, (Reported) PT STATES SHE IS NOT TAKING WHILE TAKING HER ANTIBIOTIC Polyethylene Glycol (Miralax) 1 Pow Pow, 17 GM PO DAILY, (Reported) Potassium Chloride (Potassium Chloride Sr) 10 Meq Tab, 10 MEQ PO QPM, (Reported) Timolol Maleate (Timolol Maleate) 0.5 % Nora, 1 DROP OU BID, (Reported) AM AND NOON Vitamin D (Drisdol) 50,000 Unit Cap, 50,000 UNIT PO QMONTH, (Reported) Scheduled PRN Fluticasone Propionate (Fluticasone Propionate) 50 Mcg/Act Spr, 1 SPRAY NA BID PRN for CONGESTION, (Reported) Allergies Coded Allergies: No Known Allergies (Unverified , 06/25/17) GME ATTESTATION GME ATTESTATION My faculty preceptor for this patient encounter was physically present during the encounter and was fully available. All aspects of the patient interview, examination, medical decision making process, and medical care plan development were reviewed and approved by the faculty preceptor. The faculty preceptor is aware and concurs with the plan as stated in the body of this note and will attest to such by his/her cosignature. OWEN OSMAN DO Jul 08, 2017 11:51
[2017-07-13] MEDS ORDERED: PREMARIN VAGINAL PV SCH (21:00)
== END 2017-07-08 16:37 | disposition home health service (06) | DRG 543 ==
LOC: M ED 04:37 → M ED INP 09:51 → M PCU 20:41 → M MSPAV 06-29 11:55
PROVIDERS: ADMIT Internal Medicine; ATTEND Internal Medicine
DX: M80.08XA Age-related osteoporosis with current pathological fracture, vertebra(e), initial encounter for fracture (principal); N39.0 Urinary tract infection, site not specified; E87.1 Hypo-osmolality and hyponatremia; M16.0 Bilateral primary osteoarthritis of hip; G51.0 Bell's palsy; H35.30 Unspecified macular degeneration; E03.9 Hypothyroidism, unspecified; I10 Essential (primary) hypertension; I16.0 Hypertensive urgency; K21.9 Gastro-esophageal reflux disease without esophagitis; K29.70 Gastritis, unspecified, without bleeding; H40.9 Unspecified glaucoma; Z85.828 Personal history of other malignant neoplasm of skin; Z79.82 Long term (current) use of aspirin; Z79.899 Other long term (current) drug therapy

== ENCOUNTER → 2019-07-10 | Outpatient (REF) | payer OTHER ==
[~2019-07-10] MED LIST changes: +ASPI81TA26 PO; +DRIS50003 PO; +ESTR62CR PV; +FLUTISP; +IBUP200T45 PO; +LATA0.0013; +LATA0.0013 OU; -LATA5OPD; +LEVO75TA4 PO; +MAGN64TASA PO; +MIRA33504 PO; +PRESCAP6 PO; +TIMO0.5S29 OU; +TYLE500T78 PO; -VITA1CAP40 PO; +VITA50005 PO
== END ==
LOC: M LAB REF 11:01
DX: L03.90 Cellulitis, unspecified (principal)

== ENCOUNTER 2023-10-10 16:01 | Emergency (ER) | payer MEDICARE ==
[~2023-10-10] VITALS: Ht 165.1 cm; Wt 80.9 kg
[~2023-10-10 16:01] MED LIST changes: +HYDR-3490 PO; -HYDR25TAB PO; -IBUP200T45 PO; +IBUP200T46 PO; +POTA-150 PO; -POTA10TA17 PO; +TIMO0.5S20; +TIMO0.5S20 OU; -TIMO0.5S29; -TIMO0.5S29 OU
[2023-10-10 16:02] VITALS: TEMP 97.3
[2023-10-10] MEDS ORDERED: CYCL5TAB PO (19:33)
[2023-10-10] MEDS ORDERED: NITR-67 PO (19:33)
[2023-10-10] MEDS: NITROFURANTOIN (MACROBID) 100 MG CAP PO ONE (19:42)
[2023-10-10] MEDS: CYCLOBENZAPRINE 5MG TABLET PO ONE (19:42)
[2023-10-10 19:47] VITALS: BP 144/82; O2SAT 99
[2023-10-11] MEDS ORDERED: FOSF3PAC2 PO (09:45)
[2023-10-11] MEDS ORDERED: CEPH500C PO (11:31)
== END 2023-10-10 19:49 | disposition home or self-care (01) ==
LOC: M ED 16:01
DX: N30.00 Acute cystitis without hematuria (principal); M54.50 Low back pain, unspecified; I10 Essential (primary) hypertension; E03.9 Hypothyroidism, unspecified; K21.9 Gastro-esophageal reflux disease without esophagitis; M13.80 Other specified arthritis, unspecified site; F10.10 Alcohol abuse, uncomplicated; Z79.82 Long term (current) use of aspirin; Z79.51 Long term (current) use of inhaled steroids; Z79.899 Other long term (current) drug therapy; Z79.2 Long term (current) use of antibiotics